=== PATIENT | male | born 1940 | race Caucasian/White ===

== ENCOUNTER 2017-10-14 10:17 | Inpatient (IN) ==
--- NOTE | 2017-10-14 10:59 | Emergency Department Note ---
Disposition Clinical Impression: Weakness, Dyspnea, Multiple falls Disposition: Admitted As Inpatient Condition: Fair Time of Disposition: 11:30 Weakness HPI - General Chief complaint: ED Weakness Stated complaint: weakness Time Seen by Provider: 10/14/17 10:19 Source: patient, EMS Mode of arrival: ambulatory Limitations: no limitations Nursing Notes Reviewed: Yes Vital Signs Reviewed: Yes - History of Present Illness HPI Narrative: 77-year-old male presents emergency Department with concerns of bilateral lower extremity weakness, increasing dyspnea with exertion. Patient states he is unable to function at home, he falls almost daily. Patient states his legs become weak with ambulation less than 10 feet and then give out causing him to fall to the ground. Patient also states he becomes significantly short of breath. This has been a progressive decline over the past few months. Patient states he is unable ambulate more than 10 feet without becoming short of breath. Patient denies associated chest pain, palpitations, syncope. States he fell prior to arrival to the emergency department. He notes he did not hit his head today. He has no chest pain emergency department. Pain Scale: 0 - Related Data Home Medications Medication Instructions Recorded Confirmed Insulin Glargine,Hum.rec.anlog 13 unit SQ 10/14/17 10/14/17 [Lantus Solostar] Levothyroxine Sodium [Levo-T] 25 mcg PO QAM 10/14/17 10/14/17 Levothyroxine Sodium [Levo-T] 200 mcg PO QAM 10/14/17 10/14/17 Losartan Potassium [Cozaar] 50 mg PO DAILY 10/14/17 10/14/17 Sertraline [Zoloft] 100 mg PO DAILY 10/14/17 10/14/17 Simvastatin [Zocor] 40 mg PO HS 10/14/17 10/14/17 raNITIdine HCl [Zantac] 150 mg PO BID 10/14/17 10/14/17 Allergies Allergy/AdvReac Type Severity Reaction Status Date / Time acetaminophen [From Vicodin] AdvReac See Verified 10/14/17 10:24 Comments hydrocodone [From Vicodin] AdvReac See Verified 10/14/17 10:24 Comments All systems ED: reviewed and negative except as stated. Review of Systems: As Per HPI Past Medical History - Past Medical History Attestation: Yes The following information was validated with the patient. Source: patient Medical history: Reports: diabetes, hyperlipidemia, hypertension, thyroid disease Psychiatric history: Reports: depression - Social History Smoking Status: Current every day smoker Smokeless Tobacco Status: No Alcohol use: Reports: none Drug use: Reports: none Physical Exam General: Alert and in no acute distress Skin: Warm, dry, intact Head: Normocephalic and atraumatic Neck: Supple, trachea midline and no tenderness Cardiovascular: RRR, no murmur, normal perfusion Respiratory: CTAB, no wheezing, cough, or respiratory distress Musculoskeletal: Normal strength, no tenderness, swelling or deformity. Bilateral lower extremities with 3 out of 5 strength. Pulses equal the bilateral lower extremity. GI: Soft, nontender, nondistended. Bowel sounds present Neuro: A&O to person, place, time and situation. No focal deficits noted on exam Psychiatric: cooperative and appropriate mood and affect. - General Limitations: no limitations General appearance: alert, in no apparent distress Course Vital Signs Temperature 98.3 F 10/14/17 10:18 Pulse Rate 74 10/14/17 10:18 Respiratory Rate 18 10/14/17 10:18 Blood Pressure 131/99 10/14/17 10:18 O2 Sat by Pulse Oximetry 96 10/14/17 10:18 Temperature 97.5 F L 10/14/17 12:57 Pulse Rate 67 10/14/17 12:57 Respiratory Rate 16 10/14/17 12:57 Blood Pressure 166/82 10/14/17 12:57 O2 Sat by Pulse Oximetry 96 10/14/17 12:57 Oxygen Delivery Oxygen Delivery Room Air Weakness - MDM Narrative Medical decision making narrative: CT of the head was negative for acute fracture or intracranial hemorrhage. Laboratory evaluation was largely within normal limits. Patient has equal strength of bilateral lower extremities but it is 3 out of 5. Patient does not have urinary incontinence. Patient will likely require an MRI for further evaluation of his bilateral lower extremity weakness however his symptoms do not likely represent cauda equina and have been progressive over the past few months. Patient is unable to ambulate without falling and is therefore risk to go home by himself. states she is unable to care for him at home. Patient will be admitted to the hospitalist for further care and evaluation and possible placement into rehabilitation facility. - Medical Records Medical records reviewed: Yes I reviewed the patient's medical records. - Lab Data Lab results reviewed: Yes I reviewed the patient's lab results. Result diagrams: 10/14/17 11:03 10/14/17 11:03 Lab Results 10/14/17 10/14/17 10/14/17 Range/Units 11:03 11:03 11:15 WBC 6.1 (4.3-11.1) K/mcL RBC 4.71 (4.19-5.50) M/mcL Hgb 15.5 (12.9-16.9) g/dL Hct 46.0 (37.5-50.1) % MCV 97.7 (83.0-100.0) fL MCH 32.9 (28.0-33.3) pg MCHC 33.7 (31.6-35.5) g/dL RDW 14.0 (11.5-14.5) % Plt Count 107 L (140-400) K/mcL MPV 10.2 (9.4-12.4) fL Immature Gran % 0.3 (0-4) % Seg Neutrophils % 80.1 % Lymphocytes % 11.1 % Monocytes % 6.9 % Eosinophils % 1.3 % Basophils % 0.3 % Neutrophils # 4.9 (1.6-8.9) K/mcL Lymphocytes # 0.7 (0.6-4.6) K/mcL Monocytes # 0.4 (0.0-1.3) K/mcL Eosinophils # 0.1 (0.0-0.6) K/mcL Basophils # 0.0 (0.0-0.2) K/mcL Sodium 140 (136-145) mEq/L Potassium 4.0 (3.5-5.1) mEq/L Chloride 105 (98-107) mEq/L Carbon Dioxide 28 (23-29) mEq/L BUN 20 (8-23) mg/dL Creatinine 1.22 (0.70-1.30) mg/dL Est GFR ( Amer) > 60 (> 60) Est GFR (Non-Af Amer) 58 L (> 60) BUN/Creatinine Ratio 16 (6-26) Glucose 132 H (70-105) mg/dL Calculated Osmolality 294 (280-300) Calcium 9.0 (8.6-10.3) mg/dL Total Bilirubin 2.2 H (0.3-1.0) mg/dL AST 106 H (13-39) Units/L ALT 16 (7-52) Units/L Alkaline Phosphatase 81 (34-104) Units/L Troponin I 0.03 (< 0.04) ng/mL Serum Total Protein 6.6 (6.4-8.9) g/dL Albumin 3.8 (3.5-5.7) g/dL Globulin 2.8 (2.4-3.5) g/dL Albumin/Globulin Ratio 1.4 (1.1-2.2) TSH 0.878 (0.340-5.600) mcIU/mL Urine Color Dark Yellow (Yellow) Urine Clarity Cloudy A (Clear) Urine pH 5.5 (5.0-8.0) pH Units Ur Specific [place] 1.025 (1.010-1.025) Urine Protein Trace (Neg-Trace) mg/dL Urine Glucose (UA) Normal (Normal) mg/dL Urine Ketones Trace H (Negative) mg/dL Urine Blood Negative (Negative) Urine Nitrite Negative (Negative) Urine Bilirubin Small H (Negative) Urine Urobilinogen Normal (Normal) mg/dL Ur Leukocyte Esterase Moderate H (Negative) Urine Microscopic RBC 5-15 H (0-3) per hpf Urine Microscopic WBC 15-30 H (0-3) per hpf Ur Squamous Epith Cells Many H (None-Few) per lpf Urine Bacteria None Seen (None-Few) per hpf Hyaline Casts Few (None-Few) per lpf Ur Culture Indicated? NO. A (NO) - Radiology Data Radiology results reviewed: Yes I reviewed the patient's radiology results. - EKG Data EKG attestation: Yes I reviewed and interpreted this EKG. EKG results narrative: Normal sinus rhythm with rate of 71 without evidence of STEMI.
[2017-10-14 11:23] LABS: Basophils % 0.3 %; Eosinophils # 0.1 K/mcL (0.0-0.6); Eosinophils % 1.3 %; Hemoglobin 15.5 g/dL (12.9-16.9); Immature Granulocytes % 0.3 % (0-4); Lymphocytes # 0.7 K/mcL (0.6-4.6); Lymphocytes % 11.1 %; Mean Corpuscular HGB Conc 33.7 g/dL (31.6-35.5); Mean Corpuscular Hemoglobin 32.9 pg (28.0-33.3); Mean Corpuscular Volume 97.7 fL (83.0-100.0); Mean Platelet Volume 10.2 fL (9.4-12.4); Monocytes # 0.4 K/mcL (0.0-1.3); Monocytes % 6.9 %; Neutrophils # 4.9 K/mcL (1.6-8.9); Platelet Count 107 K/mcL (140-400); Red Blood Count 4.71 M/mcL (4.19-5.50); Segmented Neutrophils % 80.1 %
[2017-10-14 11:30] LABS: Bilirubin,Urine Small (Negative); Blood,Urine Negative (Negative); Clarity,Urine Cloudy (Clear); Color,Urine Dark Yellow (Yellow); Glucose,Urine (UA) Normal (Normal); Ketones,Urine Trace mg/dL (Negative); Leukocyte Esterase,Urine Moderate (Negative); Nitrite,Urine Negative (Negative); PH,Urine 5.5 pH Units (5.0-8.0); Protein,Urine Trace mg/dL (Neg-Trace); Specific Gravity,Urine 1.025 (1.010-1.025); Urobilinogen,Urine Normal (Normal)
[2017-10-14 11:32] LABS: Bacteria,Urine None Seen per hpf (None-Few); Hyaline Casts,Urine Few per lpf (None-Few); Squamous Epithelial Cell,Urine Many per lpf (None-Few); WBC,Urine 15-30 per hpf (0-3)
[2017-10-14 11:45] LABS: Alanine Aminotransferase 16 Units/L (7-52); Albumin 3.8 g/dL (3.5-5.7); Albumin/Globulin Ratio 1.4 (1.1-2.2); Alkaline Phosphatase 81 Units/L (34-104); Aspartate Amino Transferase 106 Units/L (13-39); BUN/Creatinine Ratio 16 (6-26); Bilirubin,Total 2.2 mg/dL (0.3-1.0); Blood Urea Nitrogen 20 mg/dL (8-23); Carbon Dioxide 28 mEq/L (23-29); Chloride 105 mEq/L (98-107); Globulin 2.8 g/dL (2.4-3.5); Glucose 132 mg/dL (70-105); Osmolality,Calculated 294 (280-300); Sodium 140 mEq/L (136-145); Total Protein 6.6 g/dL (6.4-8.9); Troponin I 0.03 ng/mL (< 0.04); eGFR For African Americans > 60 (> 60); eGFR For Non-African Americans 58 (> 60)
[2017-10-14 11:58] LABS: Thyroid Stimulating Hormone 0.878 mcIU/mL (0.340-5.600)
[2017-10-14] MEDS ORDERED: Naloxone 0.4 MG/ML INJ IVP PRN (13:35)
[2017-10-14] MEDS ORDERED: Acetaminophen 325 MG TABLET PO PRN (13:35)
[2017-10-14] MEDS ORDERED: Loperamide 1 MG/5 ML UDC PO PRN (14:03)
[2017-10-14] MEDS ORDERED: Dextrose Gel 15 GM/37.5 ML TUBE PO PRN ×2 (14:04)
[2017-10-14] MEDS ORDERED: *HR* Dextrose 50 % in Water (Syg) 50 ML SYRINGE IVP PRN (14:04)
[2017-10-14] MEDS ORDERED: D5% in Water 1,000 ML IVC PRN (14:04)
--- NOTE | 2017-10-14 15:49 | Internal Med History&Physical ---
<RebeccaPonce Burciaga - Last Filed: 10/14/17 16:30> Date of Encounter: 10/14/17 Time of Encounter: 13:00 Internal Medicine - H&P: HPI Chief complaint: Weakness of bilateral LEs/SOB Admitted From: Emergency Dept Plans for Post Hospital Care: Home History of present illness: Mr. Liang is a 77 year old male w/PMH of diabetes controlled w/insulin, HLD, HTN, thyroid disease, and GERD presents from the ED w/CC of bilateral leg weakness that has been present for the past several years but has worsened over the past several weeks. Pt. reports new onset of falls over the past several weeks from weakness with last one today. Denies hitting head or syncope. Also reports SOB/dyspnea w/exertion over the past 2 weeks which has worsened. States he takes 4-5 steps and begins panting. Pt. reports diarrhea for past several days but denies recent illness, fever, chills, nausea, vomiting, changes in vision, unusual bleeding, headache, numbness, tingling, abdominal pain, constipation, dizziness, lightheadedness, pre-syncope, or syncope. Past Med Surg Social Fam HX - Past Medical History Source: patient, old records reviewed, obtained from family Medical history: diabetes, GERD, hyperlipidemia, hypertension, thyroid disease Psychiatric history: depression - Past Surgical History Additional surgical history: left knee replacement, arthroscopy right knee, disc surgery in back several years ago x 2 - Social History Smoking Status: Current some day smoker Packs per day: Pipes - Reports quitting cigarettes >40 years ago Smokeless Tobacco Status: No Alcohol use: none Drug use: none Current living situation: Home, With Family Activity Level: Uses cane/walker Recent Out of Country Travel Within the Last 8 Weeks: No Exposure or Possible Exposure to Illness During Travel: No - Family History Father Race: Family Member Ethnicity: Non- Living Status: Age at : 90 Cause of : Alzheimer's disease Hx Family Neurologic Disorders: Yes (Alzheimer's disease) Mother Race: Family Member Ethnicity: Non- Living Status: Age at : 62 Cause of : Uterine cancer Brother Race: Family Member Ethnicity: Non- Living Status: Still Living Hx Family Endocrine Disorder: Yes (DM) Internal Medicine - H&P: Meds Insulin Glargine,Hum.rec.anlog [Lantus Solostar] 13 unit SQ HS 10/14/17 [History ] Levothyroxine Sodium [Levo-T] 25 mcg PO QAM 10/14/17 [History] Levothyroxine Sodium [Levo-T] 200 mcg PO QAM 10/14/17 [History] Losartan Potassium [Cozaar] 50 mg PO DAILY 10/14/17 [History] Sertraline [Zoloft] 100 mg PO DAILY 10/14/17 [History] Simvastatin [Zocor] 40 mg PO HS 10/14/17 [History] raNITIdine HCl [Zantac] 150 mg PO BID 10/14/17 [History] 3 Allergy/AdvReac Type Severity Reaction Status Date / Time acetaminophen [From Vicodin] AdvReac See Verified 10/14/17 10:24 Comments hydrocodone [From Vicodin] AdvReac See Verified 10/14/17 10:24 Comments All Systems PM: A 10-system review of systems was performed and is negative for pertinent findings except as documented above in the HPI. - Constitutional Constitutional: as per HPI, falls, weakness (Bilateral LEs), no chills, no fever (s), no night sweats - EENT Eyes: no change in vision, no discharge, no pain, no photophobia Ears: no ear discharge, no ear pain, no tinnitus Nose, mouth and throat: no dysphagia, no nasal discharge, no neck pain, no sore throat - Breasts Breasts: as per HPI - Cardiovascular Cardiovascular ROS IM: as per HPI, dyspnea on exertion, no chest pain, no diaphoresis, no lightheadedness, no palpitations, no syncope - Respiratory Respiratory: as per HPI, dyspnea on exertion, no cough, no dyspnea, no wheezing , no excessive phlegm production - Gastrointestinal Gastrointestinal: as per HPI, diarrhea, no abdominal pain, no hematemesis, no hematochezia, no melena, no nausea, no vomiting - Genitourinary Genitourinary ROS male: as per HPI - Musculoskeletal Musculoskeletal ROS IM: as per HPI, back pain, no numbness, no tingling - Integumentary Integumentary IM: as per HPI, no rash, no unusual bruising - Neurological Neurological ROS: as per HPI, frequent falls, weakness (Bilateral LEs), no confusion, no convulsions, no focal weakness, no numbness, no tingling, no tremor(s) - Psychiatric Psychiatric: as per HPI, depression - Endocrine Endocrine IM: as per HPI - Hematologic/Lymphatic Hematologic/Lymphatic: as per HPI, no easy bruising - Allergic/Immunologic Allergic/Immunologic: as per HPI - Constitutional Vitals: Temp Pulse Resp BP Pulse Ox 97.5 F L 67 16 166/82 96 10/14/17 12:57 10/14/17 12:57 10/14/17 12:57 10/14/17 12:57 10/14/17 12:57 General appearance: Present: cooperative, A&O X 3, pleasant, no acute distress, obese, answers questions appropriately - Head Head exam: Present: atraumatic, normocephalic - Eye Eye exam: Present: PERRL, conjuntiva pink, sclera anicteric Pupils: Present: PERRL - ENT ENT exam: Present: normal exam - Neck Neck exam general surgery: Present: supple, trachea midline. Absent: lymphadenopathy - Respiratory Respiratory exam: Present: CTAB. Absent: accessory muscle use, rales, rhonchi, wheezes - Cardiovascular Cardiovascular exam: Present: RRR, +S1, +S2. Absent: diastolic murmur, gallop, rubs, systolic murmur - GI/Abdominal GI/Abdominal exam: Present: normal bowel sounds, soft, no peritoneal signs. Absent: distended, tenderness - Rectal Rectal exam: Present: deferred - Additional comments: exam deferred. - Extremities Exam Extremities exam: Present: warm, radial pulses palpable and symmetrical. Absent : calf tenderness, cyanotic, pedal edema - Back Exam Back exam: Present: normal inspection - Neurological Exam Neurological exam: Present: CN II-XII intact, oriented X3, no focal deficits. Absent: pronater drift, facial droop, speech deficit - Psychiatric Psychiatric exam: Present: normal affect, normal mood - Skin Skin exam: Present: dry, intact Internal Med - H&P Results - Labs CBC & Chem 7: 10/14/17 11:03 10/14/17 11:03 - Diagnostic Studies Chest x-ray Additional comments: Impressions Chest X-Ray 10/14/17 10:54 IMPRESSION: No acute cardiopulmonary disease. Cardiomegaly without evidence of failure. D/ / Kiet Aguirre MD / Kiet Aguirre MD Interpreting Provider: Kiet Aguirre MD CT scan - head Additional comments: Impressions Head CT 10/14/17 10:55 IMPRESSION: Stable appearance of the brain with no acute intracranial abnormality. There is age-appropriate cerebral atrophy with evidence of chronic periventricular small vessel ischemic disease. D/ / Albino Funes MD / Albino Funes MD Interpreting Provider: Albino Funes MD Other Images Additional comments: Impressions Lumbar Spine MRI 10/14/17 12:09 IMPRESSION: L3 vertebroplasty. Old L4 fracture with loss of 25% of vertebral body height. Severe central canal stenosis at L3-L4 of multifactorial etiology. Large far left lateral disc protrusion resulting in effacement of the traversing left L1 nerve root. Mild central canal stenosis at L2-L3. D/ / 10/14/2017 14:59:35 Claudy Montanez MD / hernando Interpreting Provider: Claudy Montanez MD - Assessment and plan (1) Weakness of both lower extremities Current Visit: Yes Status: Acute Assessment and plan: Acute on chronic weakness of bilateral LEs that has been present over past several years and has worsened over past several weeks resulting in multiple falls. Pt. denies hx of CVA/TIA or familial hx. CT of the head shows stable appearance of the brain with no acute intracranial abnormality. Age- appropriate cerebral atrophy with evidence of chronic periventricular small vessel ischemic disease. MRI of the lumbar spine shows L3 vertebroplasty. Old L4 fracture with loss of 25% vertebral body height. Severe central canal stenosis at L3-L4 of multifactorial etiology. Large far left lateral disc protrusion resulting in effacement of the traversing left L1 nerve root. Mild central canal stenosis at L2-L3. PT/OT consults ordered to assess for home/ rehabilitation needs. Falls/safety precautions, up with assist, bed rest w/ bedside commode w/assist only. Pt. is moderate risk for further morbidity d/t current increasing weakness and SOB, increased risk for falls/injury, hx, and risk factors. Observation. (2) Dyspnea Current Visit: Yes Status: Acute Assessment and plan: Acute dyspnea w/exertion over the past several weeks which has worsened. Pt. denies hx of COPD or CHF. BNP 19. CXR shows heart size is enlarged, stable. Pulmonary vascularity is normal. No airspace consolidation. No pleural effusion or pneumothorax. Concern for possible PE so VQ scan ordered d/t pts. GFR of 58 currently. Awaiting results. Supplemental O2 w/titration and SpO2 monitoring. Falls/safety precautions, up with assist, bed rest w/bedside commode w/assist only. Consider Echocardiogram to assess pts. LVEF. Qualifiers: Dyspnea type: dyspnea on exertion Qualified Code(s): R06.09 - Other forms of dyspnea (3) Multiple falls Current Visit: Yes Status: Acute Assessment and plan: Acute falls over past several weeks d/t weakness in bilateral LEs. Falls/safety precautions, up with assist, bed rest w/bedside commode w/assist only. (4) Diabetes Current Visit: Yes Status: Chronic Assessment and plan: Hx of chronic diabetes controlled with insulin. Continue patient's Humalog 13 units SQ at bedtime. Add low-dose correction insulin sliding scale with hypoglycemic protocol. BG checks before meals at bedtime. A1c in a.m. labs. Qualifiers: Diabetes mellitus type: type 2 Diabetes mellitus custodial insulin use: unspecified custodial insulin use status Diabetes mellitus complication status : with unspecified complications Qualified Code(s): E11.8 - Type 2 diabetes mellitus with unspecified complications (5) HTN (hypertension) Current Visit: Yes Status: Chronic Assessment and plan: Hx of chronic HTN. Monitor pt. and VS. Orthostatic BPs and VS ordered. Continue pts. Cozaar. Qualifiers: Hypertension type: essential hypertension Qualified Code(s): I10 - Essential (primary) hypertension (6) HLD (hyperlipidemia) Current Visit: Yes Status: Chronic Assessment and plan: Hx of chronic HLD. Lipid panel in a.m. labs. Continue pts. Zocor. Qualifiers: Hyperlipidemia type: pure hypercholesterolemia Qualified Code(s): E78.00 - Pure hypercholesterolemia, unspecified; E78.0 - Pure hypercholesterolemia (7) Thyroid disease Current Visit: Yes Status: Chronic Assessment and plan: Hx of chronic thyroid disease. TSH 0.878 on admission. Continue pts. Synthroid. (8) GERD (gastroesophageal reflux disease) Current Visit: Yes Status: Chronic Assessment and plan: Hx of chronic GERD. IVP Zofran 4 mg Q6HR PRN for N/V. IVP Protonix 40 mg BID. Qualifiers: Esophagitis presence: esophagitis presence not specified Qualified Code(s) : K21.9 - Gastro-esophageal reflux disease without esophagitis (9) DVT prophylaxis Current Visit: Yes Status: Acute Assessment and plan: Heparin 5,000 units SQ Q8HR for DVT prophylaxis. Monitor pt. for signs of bleeding. (10) Depression Current Visit: Yes Status: Chronic Assessment and plan: Hx of chronic depression. Continue pts. Zoloft. Qualifiers: Depression Type: unspecified Qualified Code(s): F32.9 - Major depressive disorder, single episode, unspecified - Time Spent With Patient Total time spent is greater than 50% in coordination of care (as documented) at patient's floor/unit and/or counseling patient: Greater than 35 minutes <Allan Ibarra - Last Filed: 10/15/17 07:57> Date of Encounter: 10/15/17 Internal Medicine - H&P: HPI History of present illness: Mr. Liang is a 77 year old male Past Med Surg Social Fam HX - Family History Father Race: Family Member Ethnicity: Non- Living Status: Age at : 90 Cause of : Alzheimer's disease Hx Family Neurologic Disorders: Yes (Alzheimer's disease) Mother Race: Family Member Ethnicity: Non- Living Status: Age at : 62 Cause of : Uterine cancer Brother Race: Family Member Ethnicity: Non- Living Status: Still Living Hx Family Endocrine Disorder: Yes (DM) Daughter Name: Candelaria Maciel Age: 46 Family Member Ethnicity: Non- Living Status: Still Living Hx Family Cardiac Disorders: No Hx Family Respiratory Disorders: No Hx Family Cancer: No Hx Family GI Disorders: No Hx Family Genitourinary Disorders: No Hx Family Endocrine Disorder: Yes (thyroid) Hx Family Musculoskeletal Disorders: No Hx Family Neuromuscular Disorders: No Hx Family Neurologic Disorders: No Hx Family HEENT Disorders: No Hx Family Autoimmune Disorders: No Hx Family Reproductive Disorders: No Hx Family Psychosocial Disorders: No Hx Family Medical Disorders: No All Systems PM: A 10-system review of systems was performed and is negative for pertinent findings except as documented above in the HPI. - Constitutional Vitals: Temp Pulse Resp BP Pulse Ox 98.0 F 62 16 122/60 96 10/15/17 07:14 10/15/17 07:14 10/15/17 07:14 10/15/17 07:14 10/15/17 07:14 Internal Med - H&P Results - Labs CBC & Chem 7: 10/15/17 03:45 10/15/17 03:45 Labs: Short CBC 10/15/17 Range/Units 03:45 WBC 5.3 (4.3-11.1) K/mcL Hgb 14.4 (12.9-16.9) g/dL Hct 42.2 (37.5-50.1) % Plt Count 98 L (140-400) K/mcL Neutrophils # 4.2 (1.6-8.9) K/mcL BMP 10/15/17 03:45 Sodium 139 Potassium 4.0 Chloride 106 Carbon Dioxide 26 BUN 23 Creatinine 1.18 Glucose 126 H Calcium 8.5 L Liver Function 10/15/17 Range/Units 03:45 Total Bilirubin 1.7 H (0.3-1.0) mg/dL AST 95 H (13-39) Units/L ALT 15 (7-52) Units/L Alkaline Phosphatase 73 (34-104) Units/L Albumin 3.3 L (3.5-5.7) g/dL - Impressions ITS Impressions Pulmonary Perfusion Imaging 10/14/17 14:33 IMPRESSION: Low probability for pulmonary embolus. D/ / Kyler Martinez MD / Kyler Martinez MD Interpreting Provider: Kyler Martinez MD - Attending Attestation Discussed with MALATHI and agree with assessment as above. Patient is a 77-year-old male with history of multiple falls who presented to the ER due to lower extremity weakness and shortness of breath. On exam patient did not appear short of breath and was on room air. MRI of back pending to evaluate for lower extremity weakness. Will also order VQ scan to rule out PE due to patients report of sudden onset of shortness of breath. 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 insulin use status Diabetes mellitus complication status : with unspecified complications Qualified Code(s): E11.8 - Type 2 diabetes mellitus with unspecified complications (5) HTN (hypertension) Current Visit: Yes Status: Chronic Qualifiers: Hypertension type: essential hypertension Qualified Code(s): I10 - Essential (primary) hypertension (6) HLD (hyperlipidemia) Current Visit: Yes Status: Chronic Qualifiers: Hyperlipidemia type: pure hypercholesterolemia Qualified Code(s): E78.00 - Pure hypercholesterolemia, unspecified; E78.0 - Pure hypercholesterolemia (7) Thyroid disease Current Visit: Yes Status: Chronic (8) GERD (gastroesophageal reflux disease) Current Visit: Yes Status: Chronic Qualifiers: Esophagitis presence: esophagitis presence not specified Qualified Code(s) : K21.9 - Gastro-esophageal reflux disease without esophagitis (9) DVT prophylaxis Current Visit: Yes Status: Acute (10) Depression Current Visit: Yes Status: Chronic Qualifiers: Depression Type: unspecified Qualified Code(s): F32.9 - Major depressive disorder, single episode, unspecified - Time Spent With Patient Total time spent is greater than 50% in coordination of care (as documented) at patient's floor/unit and/or counseling patient:
[2017-10-14] MEDS ORDERED: Ondansetron 4 MG/2 ML VIAL IVP PRN (16:00)
[2017-10-14] MEDS: Levothyroxine 25 MCG TABLET PO SCH (17:08)
[2017-10-14] MEDS: Pantoprazole 40 MG VIAL IVP SCH (17:10)
[2017-10-14] MEDS: Insulin LISPRO 300 UNITS/3 ML VIAL SQ SCH ×2 (17:20→21:08)
[2017-10-14] MEDS: Insulin DETEMIR 100 UNIT/ML X5UNITS SQ SCH (20:56)
[2017-10-14] MEDS: *HR* Heparin 5,000 UNIT/ML VIAL SQ SCH (21:08)
[2017-10-15] MEDS: Melatonin 3 MG TABLET PO PRN ×2 (03:35→20:25)
[2017-10-15 04:44] LABS: Immature Granulocytes % 0.4 % (0-4); Mean Corpuscular Volume 97.7 fL (83.0-100.0)
[2017-10-15 04:46] LABS: Basophils % 0.2 %; Eosinophils # 0.1 K/mcL (0.0-0.6); Eosinophils % 1.1 %; Hematocrit 42.2 % (37.5-50.1); Hemoglobin 14.4 g/dL (12.9-16.9); Immature Platelets 3.2 % (1.1-6.1); Lymphocytes # 0.7 K/mcL (0.6-4.6); Lymphocytes % 12.5 %; Mean Corpuscular HGB Conc 34.1 g/dL (31.6-35.5); Mean Corpuscular Hemoglobin 33.3 pg (28.0-33.3); Mean Platelet Volume 10.6 fL (9.4-12.4); Monocytes # 0.4 K/mcL (0.0-1.3); Monocytes % 7.5 %; Neutrophils # 4.2 K/mcL (1.6-8.9); Red Blood Count 4.32 M/mcL (4.19-5.50); Segmented Neutrophils % 78.3 %
[2017-10-15 04:51] LABS: Alanine Aminotransferase 15 Units/L (7-52); Albumin 3.3 g/dL (3.5-5.7); Albumin/Globulin Ratio 1.3 (1.1-2.2); Alkaline Phosphatase 73 Units/L (34-104); Aspartate Amino Transferase 95 Units/L (13-39); BUN/Creatinine Ratio 19 (6-26); Bilirubin,Total 1.7 mg/dL (0.3-1.0); Blood Urea Nitrogen 23 mg/dL (8-23); Calcium 8.5 mg/dL (8.6-10.3); Carbon Dioxide 26 mEq/L (23-29); Chloride 106 mEq/L (98-107); Chol/HDL Ratio 3.3 (0-4.9); Cholesterol 109 mg/dL (< 200); Globulin 2.5 g/dL (2.4-3.5); Glucose 126 mg/dL (70-105); HDL Cholesterol 33 mg/dL (40-59); LDL Cholesterol,Calculated 59 mg/dL (0-99); Magnesium 1.7 mg/dL (1.6-2.6); Osmolality,Calculated 293 (280-300); Sodium 139 mEq/L (136-145); Total Protein 5.8 g/dL (6.4-8.9); Triglycerides 83 mg/dL (< 150); eGFR For African Americans > 60 (> 60); eGFR For Non-African Americans > 60 (> 60)
[2017-10-15 05:04] LABS: Platelet Count 98 K/mcL (140-400)
[2017-10-15] MEDS: Levothyroxine 25 MCG TABLET PO SCH (06:04)
[2017-10-15] MEDS: Pantoprazole 40 MG VIAL IVP SCH ×2 (06:04→17:10)
[2017-10-15] MEDS: *HR* Heparin 5,000 UNIT/ML VIAL SQ SCH ×3 (06:05→20:24)
[2017-10-15] MEDS ORDERED: Levothyroxine 25 MCG TABLET PO SCH (06:30)
--- NOTE | 2017-10-15 07:18 | Electrocardiograph Report ---
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
[2017-10-15] MEDS: Insulin LISPRO 300 UNITS/3 ML VIAL SQ SCH ×4 (08:07→19:58)
--- NOTE | 2017-10-15 09:32 | Internal Med Progress Note ---
Date of Encounter: 10/15/17 Time of Encounter: 09:30 - Assessment and plan (1) Dyspnea Current Visit: Yes Status: Acute Assessment and plan: Patient has been experiencing dyspnea for several weeks denies any history of COPD chest x-ray shows heart size is enlarged pulmonary vascularity is normal no pleural effusion or pneumothorax VQ scan is low probability for PE-SPO2 is stable on room air-supplemental oxygen as needed falls precaution patient will be evaluated for PTOT deconditioning weakness Qualifiers: Dyspnea type: dyspnea on exertion Qualified Code(s): R06.09 - Other forms of dyspnea (2) Multiple falls Current Visit: Yes Status: Acute Assessment and plan: Patient does have a history of past falls however the past 3 days he is followed every day due to weakness and bilateral lower extremities. Most likely secondary to severe spinal canal stenosis. We will check B12 and folate Patient will follow up with Dr. Clark next in his office PTOT has been evaluated (3) Weakness of both lower extremities Current Visit: Yes Status: Acute Assessment and plan: MRI completed which did show L3 vertebroplasty. Old L4 fracture with loss of 25 % of vertebral body height. Severe central canal stenosis at L3-L4 of multifactorial etiology. Large far left lateral disc protrusion resulting in effacement of the traversing left L1 nerve root. Mild central canal stenosis at L2-L3." I did speak with Dr. 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 Diabetes mellitus complication status : with unspecified complications Qualified Code(s): E11.8 - Type 2 diabetes mellitus with unspecified complications (5) HTN (hypertension) Current Visit: Yes Status: Chronic Assessment and plan: Blood pressure is stable at this time-orthostatics stable-continued Veteran Qualifiers: Hypertension type: essential hypertension Qualified Code(s): I10 - Essential (primary) hypertension (6) HLD (hyperlipidemia) Current Visit: Yes Status: Chronic Assessment and plan: Lipid panel stable continue Zocor Qualifiers: Hyperlipidemia type: pure hypercholesterolemia Qualified Code(s): E78.00 - Pure hypercholesterolemia, unspecified; E78.0 - Pure hypercholesterolemia (7) Thyroid disease Current Visit: Yes Status: Chronic Assessment and plan: Continue Synthroid (8) GERD (gastroesophageal reflux disease) Current Visit: Yes Status: Chronic Assessment and plan: Protonix Qualifiers: Esophagitis presence: esophagitis presence not specified Qualified Code(s) : K21.9 - Gastro-esophageal reflux disease without esophagitis (9) Depression Current Visit: Yes Status: Chronic Assessment and plan: Continue Zoloft presently stable Qualifiers: Depression Type: unspecified Qualified Code(s): F32.9 - Major depressive disorder, single episode, unspecified (10) DVT prophylaxis Current Visit: Yes Status: Acute Assessment and plan: Heparin subcutaneous (11) Spinal stenosis of lumbar region Current Visit: Yes Status: Acute Assessment and plan: Lumbar MRI L3 vertebroplasty. Old L4 fracture with loss of 25% of vertebral body height. Severe central canal stenosis at L3-L4 of multifactorial etiology. Large far left lateral disc protrusion resulting in effacement of the traversing left L1 nerve root. Mild central canal stenosis at L2-L3." Qualifiers: Neurogenic claudication status: unspecified Qualified Code(s): M48.061 - Spinal stenosis, lumbar region without neurogenic claudication - Time Spent With Patient Total time spent is greater than 50% in coordination of care (as documented) at patient's floor/unit and/or counseling patient: - Subjective Interval history: Patient seen and examined at bedside. Denies any pain or discomfort. Attempted to have patient stand he was unable to stand saying he legs are too weak. I did review treatment plan with the patient, he verbalizes understanding. - Constitutional Vitals: Temp Pulse Resp BP Pulse Ox 98.0 F 62 16 122/60 96 10/15/17 07:14 10/15/17 07:14 10/15/17 07:14 10/15/17 07:14 10/15/17 07:14 General appearance: Present: cooperative, A&O X 3, pleasant, no acute distress, obese, answers questions appropriately - Head Head exam: Present: atraumatic, normocephalic - Eye Eye exam: Present: PERRL, conjuntiva pink, sclera anicteric Pupils: Present: PERRL - Neck Neck exam general surgery: Present: supple, trachea midline. Absent: lymphadenopathy - Respiratory Respiratory exam: Present: CTAB. Absent: accessory muscle use, rales, rhonchi, wheezes - Cardiovascular Cardiovascular exam: Present: RRR, +S1, +S2. Absent: diastolic murmur, gallop, rubs, systolic murmur - GI/Abdominal GI/Abdominal exam: Present: normal bowel sounds, soft, no peritoneal signs. Absent: distended, tenderness - Extremities Exam Extremities exam: Present: warm, radial pulses palpable and symmetrical. Absent : calf tenderness, cyanotic, pedal edema - Neurological Exam Neurological exam: Present: CN II-XII intact, oriented X3, no focal deficits. Absent: pronater drift, facial droop, speech deficit - Skin Skin exam: Present: dry, intact Internal Medicine: Result - Labs CBC & Chem 7: 10/15/17 03:45 10/15/17 03:45 Labs: Short CBC 10/15/17 Range/Units 03:45 WBC 5.3 (4.3-11.1) K/mcL Hgb 14.4 (12.9-16.9) g/dL Hct 42.2 (37.5-50.1) % Plt Count 98 L (140-400) K/mcL Neutrophils # 4.2 (1.6-8.9) K/mcL BMP 10/15/17 03:45 Sodium 139 Potassium 4.0 Chloride 106 Carbon Dioxide 26 BUN 23 Creatinine 1.18 Glucose 126 H Calcium 8.5 L Liver Function 10/15/17 Range/Units 03:45 Total Bilirubin 1.7 H (0.3-1.0) mg/dL AST 95 H (13-39) Units/L ALT 15 (7-52) Units/L Alkaline Phosphatase 73 (34-104) Units/L Albumin 3.3 L (3.5-5.7) g/dL - Impressions Impressions Pulmonary Perfusion Imaging 10/14/17 14:33 IMPRESSION: Low probability for pulmonary embolus. D/ / Kyler Martinez MD / Kyler Martinez MD Interpreting Provider: Kyler Martinez MD Consult Discharge Plan - Plan Referrals: Silvio Disla MD [Primary Care Provider] - Shawn Clark Jr, MD [Partnered Physician] - 10/21/17 8:00 am
--- NOTE | 2017-10-15 11:52 | Neurology - Consult Note ---
<Jeffry Huang - Last Filed: 10/15/17 11:50> Date of Encounter: 10/15/17 Time of Encounter: 10:30 Assessment and Plan (1) Weakness of both lower extremities Current Visit: Yes Status: Acute MRI Lumbar spine shows: "L3 vertebroplasty. Old L4 fracture with loss of 25% of vertebral body height. Severe central canal stenosis at L3-L4 of multifactorial etiology. Large far left lateral disc protrusion resulting in effacement of the traversing left L1 nerve root. Mild central canal stenosis at L2-L3." Patient has severe spinal canal stenosis which is the likely the cause of the patient's BLE weakness. PT/OT have been consulted. Recommendations: Consult Dr. Hitchcock of Neurosurgery. can consider checking b12/folate as well, but feel patient's symptoms are most likely secodnary to severe spinal canal stenosis. (2) Spinal stenosis of lumbar region Current Visit: Yes Status: Acute MRI Lumbar spine shows: "L3 vertebroplasty. Old L4 fracture with loss of 25% of vertebral body height. Severe central canal stenosis at L3-L4 of multifactorial etiology. Large far left lateral disc protrusion resulting in effacement of the traversing left L1 nerve root. Mild central canal stenosis at L2-L3." Recommendations: Consult Dr. Hitchcock of Neurosurgery. Qualifiers: Neurogenic claudication status: unspecified Qualified Code(s): M48.061 - Spinal stenosis, lumbar region without neurogenic claudication History of Present Illness Chief complaint: BLE Weakness HPI: Mr. Liang is a 77 year old male c PMHx of DM, GERD, hyperlipidemia, hypertension, thyroid disease, prior kyphoplasty with Dr. Hitchcock in 2010 report to the [facility] with complaints of BLE weakness. He reports multiple falls with his legs giving out from under him. He reports not being able to walk more than 10 feet before his legs get weak and give out on him. Patient reports weakness has been there for several years, but has worsened over the last few weeks. Patient denies hitting head, LOC, Dizziness or prodrome prior to falling. Past Med Surg Social Fam HX - Past Medical History Medical history: diabetes, GERD, hyperlipidemia, hypertension, thyroid disease Psychiatric history: depression - Past Surgical History Additional surgical history: left knee replacement, arthroscopy right knee, disc surgery in back several years ago x 2 - Social History Smoking Status: Current some day smoker Packs per day: Pipes - Reports quitting cigarettes >40 years ago Smokeless Tobacco Status: No Alcohol use: none Drug use: none - Family History Daughter Name: Candelaria Maciel Age: 46 Family Member Ethnicity: Non- Living Status: Still Living Hx Family Cardiac Disorders: No Hx Family Respiratory Disorders: No Hx Family Cancer: No Hx Family GI Disorders: No Hx Family Genitourinary Disorders: No Hx Family Endocrine Disorder: Yes (thyroid) Hx Family Musculoskeletal Disorders: No Hx Family Neuromuscular Disorders: No Hx Family Neurologic Disorders: No Hx Family HEENT Disorders: No Hx Family Autoimmune Disorders: No Hx Family Reproductive Disorders: No Hx Family Psychosocial Disorders: No Hx Family Medical Disorders: No Father Race: Family Member Ethnicity: Non- Living Status: Age at : 90 Cause of : Alzheimer's disease Hx Family Neurologic Disorders: Yes (Alzheimer's disease) Mother Race: Family Member Ethnicity: Non- Living Status: Age at : 62 Cause of : Uterine cancer Brother Race: Family Member Ethnicity: Non- Living Status: Still Living Hx Family Endocrine Disorder: Yes (DM) Medications and Allergies Insulin Glargine,Hum.rec.anlog [Lantus Solostar] 13 unit SQ HS 10/14/17 [History ] Levothyroxine Sodium [Levo-T] 25 mcg PO QAM 10/14/17 [History] Levothyroxine Sodium [Levo-T] 200 mcg PO QAM 10/14/17 [History] Losartan Potassium [Cozaar] 50 mg PO DAILY 10/14/17 [History] Sertraline [Zoloft] 100 mg PO DAILY 10/14/17 [History] Simvastatin [Zocor] 40 mg PO HS 10/14/17 [History] raNITIdine HCl [Zantac] 150 mg PO BID 10/14/17 [History] 3 Allergy/AdvReac Type Severity Reaction Status Date / Time acetaminophen [From Vicodin] AdvReac See Verified 10/14/17 10:24 Comments hydrocodone [From Vicodin] AdvReac See Verified 10/14/17 10:24 Comments All Systems: The remainder of the systems were reviewed and are negative except where noted in the HPI. Physical Examination - Vital Signs Vital Signs: Initial Vital Signs Temp Pulse Resp BP Pulse Ox 98.3 F 74 18 131/99 96 10/14/17 10:18 10/14/17 10:18 10/14/17 10:18 10/14/17 10:18 10/14/17 10:18 - Constitutional General appearance: comfortable - Neurologic Motor examination - right side: 4/5: hip flexors, tibialis Anterior, quadriceps , toe extension (EHL), plantarflexion, 5/5: deltoids, biceps, triceps, wrist flexion, wrist extension, form setter/driver Motor examination - left side: 4/5: hip flexors, quadriceps, tibialis Anterior, toe extension (EHL), plantarflexion, 5/5: deltoids, biceps, triceps, wrist flexion, wrist extension, form setter/driver Detailed sensory examination: intact, light touch Reflexes: Biceps: 2+ (b/l), Patella: 2+ (on the R unable to illicit on L secodnary to Knee replacement.), Achilles: 2+ (b/l no clonus, Toe upgoing b/l on babinski testing) Mental Status Examination: awake, alert, oriented to person, oriented to place, oriented to time, follows commands appropriately, answers questions appropriately Cranial nerve examination: PERRL, EOMI, visual pickering intact, sensory to face intact, no facial asymmetry is present, no dysarthria, hearing is intact symmetrically, soft palate elevates bilaterally upon phonation, flexes SCM and trapezius muscles symmetrically with full power, tongue protrudes midline, no atrophy or facial fasiculations present Results - Laboratory Findings CBC and BMP: 10/15/17 03:45 10/15/17 03:45 Abnormal lab findings: Abnormal lab results Plt Count 98 K/mcL (140-400) L 10/15/17 03:45 Glucose 126 mg/dL (70-105) H 10/15/17 03:45 POC Glucose 150 mg/dL (70-99) H 10/14/17 20:33 Calcium 8.5 mg/dL (8.6-10.3) L 10/15/17 03:45 Total Bilirubin 1.7 mg/dL (0.3-1.0) H 10/15/17 03:45 AST 95 Units/L (13-39) H 10/15/17 03:45 Serum Total Protein 5.8 g/dL (6.4-8.9) L 10/15/17 03:45 Albumin 3.3 g/dL (3.5-5.7) L 10/15/17 03:45 HDL Cholesterol 33 mg/dL (40-59) L 10/15/17 03:45 Urine Clarity Cloudy (Clear) A 10/14/17 11:15 Urine Ketones Trace mg/dL (Negative) H 10/14/17 11:15 Urine Bilirubin Small (Negative) H 10/14/17 11:15 Ur Leukocyte Esterase Moderate (Negative) H 10/14/17 11:15 Urine Microscopic RBC 5-15 per hpf (0-3) H 10/14/17 11:15 Urine Microscopic WBC 15-30 per hpf (0-3) H 10/14/17 11:15 Ur Squamous Epith Cells Many per lpf (None-Few) H 10/14/17 11:15 Ur Culture Indicated? NO. (NO) A 10/14/17 11:15 Consult Discharge Plan - Plan Referrals: Silvio Disla MD [Primary Care Provider] - Shawn Clark Jr, MD [Partnered Physician] - 10/21/17 8:00 am <Joseph Kimbrough - Last Filed: 10/15/17 15:45> Date of Encounter: 10/15/17 Time of Encounter: 15:32 Assessment and Plan (1) Weakness of both lower extremities Current Visit: Yes Status: Acute I agree with the resident's assessment as stated above. Reviewed the MRI scans independently and I agree there is significant spinal stenosis at the L3-L4 level which is likely the cause of this patient's paraparesis. I will request a spine consultation. History of Present Illness HPI: The chart was reviewed, the patient was seen and examined independently. The case was discussed with the resident on service. I agree with his assessment as stated above. Patient denies any difficulty with sphincter abnormalities denies any evidence of a spinal level. He is able to ambulate with a walker. All Systems: The remainder of the systems were reviewed and are negative Review of Systems: The balance of the systems review is negative. Physical Examination - Vital Signs Vital Signs: Initial Vital Signs Temp Pulse Resp BP Pulse Ox 98.3 F 74 18 131/99 96 10/14/17 10:18 10/14/17 10:18 10/14/17 10:18 10/14/17 10:18 10/14/17 10:18 Results - Laboratory Findings CBC and BMP: 10/15/17 03:45 10/15/17 03:45 Abnormal lab findings: Abnormal lab results Plt Count 98 K/mcL (140-400) L 10/15/17 03:45 Glucose 126 mg/dL (70-105) H 10/15/17 03:45 POC Glucose 150 mg/dL (70-99) H 10/14/17 20:33 Calcium 8.5 mg/dL (8.6-10.3) L 10/15/17 03:45 Total Bilirubin 1.7 mg/dL (0.3-1.0) H 10/15/17 03:45 AST 95 Units/L (13-39) H 10/15/17 03:45 Serum Total Protein 5.8 g/dL (6.4-8.9) L 10/15/17 03:45 Albumin 3.3 g/dL (3.5-5.7) L 10/15/17 03:45 HDL Cholesterol 33 mg/dL (40-59) L 10/15/17 03:45 Urine Clarity Cloudy (Clear) A 10/14/17 11:15 Urine Ketones Trace mg/dL (Negative) H 10/14/17 11:15 Urine Bilirubin Small (Negative) H 10/14/17 11:15 Ur Leukocyte Esterase Moderate (Negative) H 10/14/17 11:15 Urine Microscopic RBC 5-15 per hpf (0-3) H 10/14/17 11:15 Urine Microscopic WBC 15-30 per hpf (0-3) H 10/14/17 11:15 Ur Squamous Epith Cells Many per lpf (None-Few) H 10/14/17 11:15 Ur Culture Indicated? NO. (NO) A 10/14/17 11:15
[2017-10-15] MEDS: Insulin DETEMIR 100 UNIT/ML X5UNITS SQ SCH (20:24)
[2017-10-15] MEDS ORDERED: Perflutren Lipid Microsphere 1.3 ML in 0.9 % Sodium Chloride 8.7 ML IVP ONE (21:01)
[2017-10-16 04:48] LABS: Basophils % 0.2 %; Eosinophils # 0.1 K/mcL (0.0-0.6); Eosinophils % 1.4 %; Hemoglobin 14.7 g/dL (12.9-16.9); Lymphocytes # 0.6 K/mcL (0.6-4.6); Lymphocytes % 11.7 %; Mean Corpuscular HGB Conc 34.2 g/dL (31.6-35.5); Mean Corpuscular Hemoglobin 33.6 pg (28.0-33.3); Mean Corpuscular Volume 98.4 fL (83.0-100.0); Mean Platelet Volume 10.6 fL (9.4-12.4); Monocytes # 0.4 K/mcL (0.0-1.3); Monocytes % 8.3 %; Neutrophils # 3.8 K/mcL (1.6-8.9); Nucleated Red Blood Cells 0.4 /100 WBC (0); Platelet Count 101 K/mcL (140-400); Red Blood Count 4.37 M/mcL (4.19-5.50); Red Cell Distribution Width 13.9 % (11.5-14.5); Segmented Neutrophils % 77.4 %
[2017-10-16 05:06] LABS: Alanine Aminotransferase 14 Units/L (7-52); Albumin 3.3 g/dL (3.5-5.7); Albumin/Globulin Ratio 1.2 (1.1-2.2); Alkaline Phosphatase 72 Units/L (34-104); Aspartate Amino Transferase 72 Units/L (13-39); BUN/Creatinine Ratio 18 (6-26); Bilirubin,Total 1.7 mg/dL (0.3-1.0); Blood Urea Nitrogen 21 mg/dL (8-23); Calcium 8.7 mg/dL (8.6-10.3); Carbon Dioxide 29 mEq/L (23-29); Chloride 106 mEq/L (98-107); Globulin 2.7 g/dL (2.4-3.5); Glucose 111 mg/dL (70-105); Osmolality,Calculated 296 (280-300); Potassium 4.3 mEq/L (3.5-5.1); Sodium 141 mEq/L (136-145); eGFR For African Americans > 60 (> 60); eGFR For Non-African Americans 59 (> 60)
[2017-10-16 05:27] LABS: Folate 8.4 ng/mL (3.0-16.0)
[2017-10-16] MEDS: *HR* Heparin 5,000 UNIT/ML VIAL SQ SCH ×3 (05:56→20:18)
[2017-10-16] MEDS: Levothyroxine 25 MCG TABLET PO SCH (05:56)
[2017-10-16] MEDS: Pantoprazole 40 MG VIAL IVP SCH ×2 (05:56→16:56)
[2017-10-16] MEDS: Insulin LISPRO 300 UNITS/3 ML VIAL SQ SCH ×4 (08:26→20:29)
--- NOTE | 2017-10-16 09:43 | Internal Med Progress Note ---
Date of Encounter: 10/16/17 Time of Encounter: 09:43 - Assessment and plan (1) Dyspnea Current Visit: Yes Status: Acute Assessment and plan: Patient has been experiencing dyspnea for several weeks denies any history of COPD chest x-ray shows heart size is enlarged pulmonary vascularity is normal no pleural effusion or pneumothorax VQ scan is low probability for PE-SPO2 is stable on room air-supplemental oxygen as needed falls precaution patient will be evaluated for PTOT deconditioning weakness Qualifiers: Dyspnea type: dyspnea on exertion Qualified Code(s): R06.09 - Other forms of dyspnea (2) Multiple falls Current Visit: Yes Status: Acute Assessment and plan: Patient does have a history of past falls however the past 3 days he is followed every day due to weakness and bilateral lower extremities. Most likely secondary to severe spinal canal stenosis. We will check B12 and folate Patient will follow up with Dr. Clark next in his office PTOT has been evaluated- recommending inpatient rehabilitation awaiting placement per social contact worker (3) Weakness of both lower extremities Current Visit: Yes Status: Acute Assessment and plan: MRI completed which did show L3 vertebroplasty. Old L4 fracture with loss of 25 % of vertebral body height. Severe central canal stenosis at L3-L4 of multifactorial etiology. Large far left lateral disc protrusion resulting in effacement of the traversing left L1 nerve root. Mild central canal stenosis at L2-L3." I did speak with Dr. 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 insulin use status Diabetes mellitus complication status : with unspecified complications Qualified Code(s): E11.8 - Type 2 diabetes mellitus with unspecified complications (5) HTN (hypertension) Current Visit: Yes Status: Chronic Assessment and plan: Blood pressure is stable at this time-orthostatics stable-continued Cozaar Qualifiers: Hypertension type: essential hypertension Qualified Code(s): I10 - Essential (primary) hypertension (6) HLD (hyperlipidemia) Current Visit: Yes Status: Chronic Assessment and plan: Lipid panel stable continue Zocor Qualifiers: Hyperlipidemia type: pure hypercholesterolemia Qualified Code(s): E78.00 - Pure hypercholesterolemia, unspecified; E78.0 - Pure hypercholesterolemia (7) Thyroid disease Current Visit: Yes Status: Chronic Assessment and plan: Continue Synthroid (8) GERD (gastroesophageal reflux disease) Current Visit: Yes Status: Chronic Assessment and plan: Protonix Qualifiers: Esophagitis presence: esophagitis presence not specified Qualified Code(s) : K21.9 - Gastro-esophageal reflux disease without esophagitis (9) Depression Current Visit: Yes Status: Chronic Assessment and plan: Continue Zoloft presently stable Qualifiers: Depression Type: unspecified Qualified Code(s): F32.9 - Major depressive disorder, single episode, unspecified (10) DVT prophylaxis Current Visit: Yes Status: Acute Assessment and plan: Heparin subcutaneous (11) Spinal stenosis of lumbar region Current Visit: Yes Status: Acute Assessment and plan: Lumbar MRI L3 vertebroplasty. Old L4 fracture with loss of 25% of vertebral body height. Severe central canal stenosis at L3-L4 of multifactorial etiology. Large far left lateral disc protrusion resulting in effacement of the traversing left L1 nerve root. Mild central canal stenosis at L2-L3." I did speak with Dr. Clark who advised no surgical intervention at this time however he will see the patient as an outpatient next in his office Patient will undergo physical therapy occupational therapy inpatient rehabilitation Qualifiers: Neurogenic claudication status: unspecified Qualified Code(s): M48.061 - Spinal stenosis, lumbar region without neurogenic claudication - Time Spent With Patient Total time spent is greater than 50% in coordination of care (as documented) at patient's floor/unit and/or counseling patient: - Subjective Interval history: Patient seen and examined at bedside. Denies any pain or discomfort. Continues to experience weakness awaiting rehabilitation placement. - Constitutional Vitals: Temp Pulse Resp BP Pulse Ox 98.1 F 59 17 149/85 96 10/16/17 07:27 10/16/17 07:27 10/16/17 07:27 10/16/17 07:27 10/16/17 07:27 General appearance: Present: cooperative, A&O X 3, pleasant, no acute distress, obese, answers questions appropriately - Head Head exam: Present: atraumatic, normocephalic - Eye Eye exam: Present: PERRL, conjuntiva pink, sclera anicteric Pupils: Present: PERRL - Neck Neck exam general surgery: Present: supple, trachea midline. Absent: lymphadenopathy - Respiratory Respiratory exam: Present: CTAB. Absent: accessory muscle use, rales, rhonchi, wheezes - Cardiovascular Cardiovascular exam: Present: RRR, +S1, +S2. Absent: diastolic murmur, gallop, rubs, systolic murmur - GI/Abdominal GI/Abdominal exam: Present: normal bowel sounds, soft, no peritoneal signs. Absent: distended, tenderness - Extremities Exam Extremities exam: Present: warm, radial pulses palpable and symmetrical. Absent : calf tenderness, cyanotic, pedal edema - Neurological Exam Neurological exam: Present: CN II-XII intact, oriented X3, no focal deficits. Absent: pronater drift, facial droop, speech deficit - Skin Skin exam: Present: dry, intact Internal Medicine: Result - Labs CBC & Chem 7: 10/16/17 03:02 10/16/17 03:02 Labs: Short CBC 10/16/17 Range/Units 03:02 WBC 5.0 (4.3-11.1) K/mcL Hgb 14.7 (12.9-16.9) g/dL Hct 43.0 (37.5-50.1) % Plt Count 101 L (140-400) K/mcL Neutrophils # 3.8 (1.6-8.9) K/mcL BMP 10/16/17 03:02 Sodium 141 Potassium 4.3 Chloride 106 Carbon Dioxide 29 BUN 21 Creatinine 1.19 Glucose 111 H Calcium 8.7 Liver Function 10/16/17 Range/Units 03:02 Total Bilirubin 1.7 H (0.3-1.0) mg/dL AST 72 H (13-39) Units/L ALT 14 (7-52) Units/L Alkaline Phosphatase 72 (34-104) Units/L Albumin 3.3 L (3.5-5.7) g/dL Consult Discharge Plan - Plan Referrals: Naif,Silvio Patterson MD [Primary Care Provider] - Shawn Clark Jr, MD [Partnered Physician] - 10/21/17 8:00 am
[2017-10-16] MEDS: Melatonin 3 MG TABLET PO PRN (20:25)
[2017-10-16] MEDS: Insulin DETEMIR 100 UNIT/ML X5UNITS SQ SCH (20:25)
[2017-10-17 05:28] LABS: Basophils % 0.4 %; Eosinophils # 0.1 K/mcL (0.0-0.6); Hematocrit 41.8 % (37.5-50.1); Hemoglobin 14.2 g/dL (12.9-16.9); Immature Granulocytes % 0.4 % (0-4); Immature Platelets 3.4 % (1.1-6.1); Lymphocytes # 0.6 K/mcL (0.6-4.6); Lymphocytes % 13.7 %; Mean Corpuscular Hemoglobin 33.5 pg (28.0-33.3); Mean Corpuscular Volume 98.6 fL (83.0-100.0); Mean Platelet Volume 10.6 fL (9.4-12.4); Monocytes # 0.4 K/mcL (0.0-1.3); Monocytes % 8.7 %; Red Blood Count 4.24 M/mcL (4.19-5.50); Segmented Neutrophils % 74.8 %
[2017-10-17 05:29] LABS: Neutrophils # 3.4 K/mcL (1.6-8.9); Platelet Count 93 K/mcL (140-400)
[2017-10-17 05:45] LABS: Alanine Aminotransferase 13 Units/L (7-52); Albumin 3.1 g/dL (3.5-5.7); Albumin/Globulin Ratio 1.2 (1.1-2.2); Alkaline Phosphatase 67 Units/L (34-104); Aspartate Amino Transferase 49 Units/L (13-39); BUN/Creatinine Ratio 19 (6-26); Bilirubin,Total 1.6 mg/dL (0.3-1.0); Blood Urea Nitrogen 20 mg/dL (8-23); Calcium 8.4 mg/dL (8.6-10.3); Carbon Dioxide 27 mEq/L (23-29); Chloride 104 mEq/L (98-107); Globulin 2.5 g/dL (2.4-3.5); Glucose 126 mg/dL (70-105); Osmolality,Calculated 290 (280-300); Potassium 4.1 mEq/L (3.5-5.1); Sodium 138 mEq/L (136-145); Total Protein 5.6 g/dL (6.4-8.9); eGFR For African Americans > 60 (> 60); eGFR For Non-African Americans > 60 (> 60)
[2017-10-17] MEDS: *HR* Heparin 5,000 UNIT/ML VIAL SQ SCH ×3 (05:50→20:50)
[2017-10-17] MEDS: Pantoprazole 40 MG VIAL IVP SCH ×2 (05:50→17:47)
[2017-10-17] MEDS: Levothyroxine 25 MCG TABLET PO SCH (05:51)
[2017-10-17] MEDS: Insulin LISPRO 300 UNITS/3 ML VIAL SQ SCH ×4 (08:11→20:49)
--- NOTE | 2017-10-17 10:49 | Internal Med Progress Note ---
Date of Encounter: 10/17/17 Time of Encounter: 10:46 - Assessment and plan (1) Spinal stenosis of lumbar region Current Visit: Yes Status: Acute Assessment and plan: Lumbar MRI L3 vertebroplasty. Old L4 fracture with loss of 25% of vertebral body height. Severe central canal stenosis at L3-L4 of multifactorial etiology. Large far left lateral disc protrusion resulting in effacement of the traversing left L1 nerve root. Mild central canal stenosis at L2-L3." I did speak with Dr. Clark who advised no surgical intervention at this time however he will see the patient as an outpatient next in his office Patient will undergo physical therapy occupational therapy inpatient rehabilitation Denies any pain or discomfort no numbness or tingling to lower extremities no loss of bowel or bladder Qualifiers: Neurogenic claudication status: unspecified Qualified Code(s): M48.061 - Spinal stenosis, lumbar region without neurogenic claudication (2) Dyspnea Current Visit: Yes Status: Acute Assessment and plan: Appears to be stable at this time Patient has been experiencing dyspnea for several weeks denies any history of COPD chest x-ray shows heart size is enlarged pulmonary vascularity is normal no pleural effusion or pneumothorax VQ scan is low probability for PE-SPO2 is stable on room air-supplemental oxygen as needed falls precaution Evaluating per PT OT recommending rehabilitation inpatient Qualifiers: Dyspnea type: dyspnea on exertion Qualified Code(s): R06.09 - Other forms of dyspnea (3) Multiple falls Current Visit: Yes Status: Acute Assessment and plan: Patient does have a history of past falls however the past 3 days he is followed every day due to weakness and bilateral lower extremities. Most likely secondary to severe spinal canal stenosis. We will check B12 and folate Patient will follow up with Dr. Clark next in his office PTOT has been evaluated- recommending inpatient rehabilitation awaiting placement per social work job titles No pain or discomfort at this time denies any numbness or tingling to lower extremities no loss of bowel or bladder (4) Weakness of both lower extremities Current Visit: Yes Status: Acute Assessment and plan: MRI completed which did show L3 vertebroplasty. Old L4 fracture with loss of 25 % of vertebral body height. Severe central canal stenosis at L3-L4 of multifactorial etiology. Large far left lateral disc protrusion resulting in effacement of the traversing left L1 nerve root. Mild central canal stenosis at L2-L3." I did speak with Dr. Clark -no immediate surgery required at this time he will see the patient as outpatient PT OT consulted-awaiting rehabilitation placement Neurology was consulted-feels weakness most likely related to spinal stenosis Continue with falls precautions (5) Diabetes Current Visit: Yes Status: Chronic Assessment and plan: Stable at this time Continue with basal insulin as well as sliding scale Accu- Cheks before meals and at bedtime Qualifiers: Diabetes mellitus type: type 2 Diabetes mellitus nursing home insulin use: unspecified nursing home insulin use status Diabetes mellitus complication status : with unspecified complications Qualified Code(s): E11.8 - Type 2 diabetes mellitus with unspecified complications (6) HTN (hypertension) Current Visit: Yes Status: Chronic Assessment and plan: Blood pressure is stable at this time-orthostatics stable-continued Cozaar continue to monitor. Qualifiers: Hypertension type: essential hypertension Qualified Code(s): I10 - Essential (primary) hypertension (7) HLD (hyperlipidemia) Current Visit: Yes Status: Chronic Assessment and plan: Lipid panel stable continue Zocor Qualifiers: Hyperlipidemia type: pure hypercholesterolemia Qualified Code(s): E78.00 - Pure hypercholesterolemia, unspecified; E78.0 - Pure hypercholesterolemia (8) Thyroid disease Current Visit: Yes Status: Chronic Assessment and plan: Continue Synthroid (9) GERD (gastroesophageal reflux disease) Current Visit: Yes Status: Chronic Assessment and plan: Protonix Qualifiers: Esophagitis presence: esophagitis presence not specified Qualified Code(s) : K21.9 - Gastro-esophageal reflux disease without esophagitis (10) Depression Current Visit: Yes Status: Chronic Assessment and plan: Continue Zoloft presently stable Qualifiers: Depression Type: unspecified Qualified Code(s): F32.9 - Major depressive disorder, single episode, unspecified (11) DVT prophylaxis Current Visit: Yes Status: Acute Assessment and plan: Heparin subcutaneous - Time Spent With Patient Total time spent is greater than 50% in coordination of care (as documented) at patient's floor/unit and/or counseling patient: - Subjective Interval history: Patient seen and examined at bedside. No changes since yesterday denies any pain or discomfort at this time. Awaiting placement to rehabilitation - Constitutional Vitals: Temp Pulse Resp BP Pulse Ox 98.4 F 65 17 163/90 95 10/17/17 08:28 10/17/17 08:28 10/17/17 08:28 10/17/17 08:28 10/17/17 08:28 General appearance: Present: cooperative, A&O X 3, pleasant, no acute distress, obese, answers questions appropriately - Head Head exam: Present: atraumatic, normocephalic - Eye Eye exam: Present: PERRL, conjuntiva pink, sclera anicteric Pupils: Present: PERRL - Neck Neck exam general surgery: Present: supple, trachea midline. Absent: lymphadenopathy - Respiratory Respiratory exam: Present: CTAB. Absent: accessory muscle use, rales, rhonchi, wheezes - Cardiovascular Cardiovascular exam: Present: RRR, +S1, +S2. Absent: diastolic murmur, gallop, rubs, systolic murmur - GI/Abdominal GI/Abdominal exam: Present: normal bowel sounds, soft, no peritoneal signs. Absent: distended, tenderness - Extremities Exam Extremities exam: Present: warm, radial pulses palpable and symmetrical. Absent : calf tenderness, cyanotic, pedal edema - Neurological Exam Neurological exam: Present: CN II-XII intact, oriented X3, no focal deficits. Absent: pronater drift, facial droop, speech deficit - Skin Skin exam: Present: dry, intact Internal Medicine: Result - Labs CBC & Chem 7: 10/17/17 04:55 10/17/17 04:55 Labs: Short CBC 10/17/17 Range/Units 04:55 WBC 4.6 (4.3-11.1) K/mcL Hgb 14.2 (12.9-16.9) g/dL Hct 41.8 (37.5-50.1) % Plt Count 93 L (140-400) K/mcL Neutrophils # 3.4 (1.6-8.9) K/mcL BMP 10/17/17 04:55 Sodium 138 Potassium 4.1 Chloride 104 Carbon Dioxide 27 BUN 20 Creatinine 1.05 Glucose 126 H Calcium 8.4 L Liver Function 10/17/17 Range/Units 04:55 Total Bilirubin 1.6 H (0.3-1.0) mg/dL AST 49 H (13-39) Units/L ALT 13 (7-52) Units/L Alkaline Phosphatase 67 (34-104) Units/L Albumin 3.1 L (3.5-5.7) g/dL Consult Discharge Plan - Plan Referrals: Silvio Disla MD [Primary Care Provider] - Shawn Clark Jr, MD [Partnered Physician] - 10/21/17 8:00 am
--- NOTE | 2017-10-17 17:22 | Spine Progress Note ---
Date of Encounter: 10/17/17 Time of Encounter: 17:18 - Assessment and Plan (1) Lumbar stenosis without neurogenic claudication Current Visit: Yes Status: Chronic On exam he is afebrile vital signs stable. He complains mostly of weakness in legs with frequent falls. He has some bilateral quad weakness which is 4 on a motor scale. He is otherwise neurovascularly intact with regard to his bilateral lower extremities. His hips move symmetrically. He has no clonus. MRI of the lumbar spine reveals old compression fractures at L3 and L4. There is been a previous vertebral plasty/kyphoplasty at L3. There is severe stenosis at the L3-4 level which is multifactorial in etiology. Impression: 1) lumbar stenosis severe 2) bilateral lower extremity weakness with falls Plan: Due to his concerning worsening neurologic status I find it reasonable consider surgery in the form of a laminectomy L3-4. Patient is to consider this option after consulting with his spouse. He would be placed as an add-on for October 18. He understands that he needs medical optimization and clearance prior to surgery. Subjective Principal diagnosis: Leg weakness, lumbar stenosis, falls Interval history: Mr. Hart a 77-year-old gentleman known to the practice due to previous lumbar fractures. He complains of a 6 month history of gradual onset of weakness in the lower extremities. In the past several weeks this has been manifested by falls when his legs give out. He came through the emergency department due to falls and weakness and was admitted for definitive management. He denies any fevers, chills, or bowel or bladder symptomatology. Objective Vital signs: Vital Signs Temp Pulse Resp BP Pulse Ox 10/17/17 16:08 98 F 64 17 132/66 95 10/17/17 11:50 98.1 F 60 17 161/84 95 10/17/17 08:28 98.4 F 65 17 163/90 95 10/17/17 03:25 98.4 F 67 16 135/81 98 10/16/17 23:09 97.4 F L 63 19 146/79 96 10/16/17 19:20 98.1 F 67 18 159/73 95 Intake and Output 10/17/17 10/17/17 10/17/17 07:59 15:59 23:59 Output Total 250 / 250 Balance -250 / -250 Output: Urine 250 / 250 Other: # Voids 1 Weight 136.9 kg Blood Glucose* 90 123 Patient Weight 10/17/17 23:59 Weight 136.9 kg - Labs CBC & BMP: 10/17/17 04:55 10/17/17 04:55 Labs: Abnormal lab results MCH 33.5 pg (28.0-33.3) H 10/17/17 04:55 Plt Count 93 K/mcL (140-400) L 10/17/17 04:55 Nucleated RBCs/100 WBC 0.4 /100 WBC (0) H 10/16/17 03:02 Glucose 126 mg/dL (70-105) H 10/17/17 04:55 Calcium 8.4 mg/dL (8.6-10.3) L 10/17/17 04:55 Total Bilirubin 1.6 mg/dL (0.3-1.0) H 10/17/17 04:55 AST 49 Units/L (13-39) H 10/17/17 04:55 Serum Total Protein 5.6 g/dL (6.4-8.9) L 10/17/17 04:55 Albumin 3.1 g/dL (3.5-5.7) L 10/17/17 04:55 HDL Cholesterol 33 mg/dL (40-59) L 10/15/17 03:45 Urine Clarity Cloudy (Clear) A 10/14/17 11:15 Urine Ketones Trace mg/dL (Negative) H 10/14/17 11:15 Urine Bilirubin Small (Negative) H 10/14/17 11:15 Ur Leukocyte Esterase Moderate (Negative) H 10/14/17 11:15 Urine Microscopic RBC 5-15 per hpf (0-3) H 10/14/17 11:15 Urine Microscopic WBC 15-30 per hpf (0-3) H 10/14/17 11:15 Ur Squamous Epith Cells Many per lpf (None-Few) H 10/14/17 11:15 Ur Culture Indicated? NO. (NO) A 10/14/17 11:15 Consult Discharge Plan - Plan Referrals: Silvio Disla MD [Primary Care Provider] - Shawn Clark Jr, MD [Partnered Physician] - 10/21/17 8:00 am
--- NOTE | 2017-10-17 19:38 | Event Note ---
Date of Encounter: 10/17/17 Time of Encounter: 19:11 Alerted by pts. nurse MAKAYLA Calixto that pt. was going to have surgical intervention for lumbar stenosis. On admission, pt. exhibited new onset of falls over the past several weeks d/t weakness. Pt. seen by Neurology w/ recommendations per Dr. Kimbrough that patient's worsening neuro symptoms most likely secondary to severe spinal canal stenosis and to consult Dr. Clark of Neurosurgery. Pt. examined by Dr. Clark with concern for worsening neurological status. Dr. Clark's recommendation is for surgery in the form of a laminectomy L3-4. If patient amenable to the procedure, he would be an add -on to the surgery schedule on October 18. Pt. requires medical clearance for procedure. Pts. PMH includes diabetes controlled w/insulin, HLD, HTN, thyroid disease, and GERD. Pt. had Echocardiogram on 10/15/17 which showed LVEF of 55%, normal LV wall thickness and function, mildly dilated left ventricle, atypical septal motion consistent with bundle branch block, mild left ventricular diastolic dysfunction, right ventricular size was not well visualized but function appear grossly normal, no evidence of pulmonary hypertension identified and no significant valvular dysfunction. Labs grossly normal w/ exception of hypocalcemia of 8.4 for which pt. will receive calcium supplementation and new calcium level drawn at 04:00. Pt. is afebrile with latest VS: temp 97.6F, HR 68, RR 19, BP 153/78, and SpO2 93% on RA. Pt. has no hx of [place] or stent placement. EKG ordered at 20:01:19 shows sinus rhythm with pattern consistent with pulmonary disease, left anterior fascicular block, and nonspecific T-wave abnormality. Pt. has medical clearance for laminectomy L3-4 tomorrow.
[2017-10-17] MEDS: Insulin DETEMIR 100 UNIT/ML X5UNITS SQ SCH (20:50)
[2017-10-17] MEDS: Melatonin 3 MG TABLET PO PRN (20:51)
[2017-10-18] MEDS: Pantoprazole 40 MG VIAL IVP SCH (06:02)
[2017-10-18] MEDS: *HR* Heparin 5,000 UNIT/ML VIAL SQ SCH ×2 (06:03→12:57)
[2017-10-18] MEDS: Levothyroxine 25 MCG TABLET PO SCH (06:03)
[2017-10-18] MEDS ORDERED: Bacitracin 50,000 UNIT, Polymyxin B Sulfate 500,000 UNIT, Sodium Chloride IRRigation 1,... IR ONE (07:15)
[2017-10-18] MEDS: Insulin LISPRO 300 UNITS/3 ML VIAL SQ SCH ×3 (07:48→17:35)
[2017-10-18 08:35] LABS: Basophils % 0.4 %; Eosinophils # 0.1 K/mcL (0.0-0.6); Eosinophils % 1.7 %; Hematocrit 43.3 % (37.5-50.1); Hemoglobin 14.3 g/dL (12.9-16.9); Immature Granulocytes % 0.2 % (0-4); Lymphocytes # 0.7 K/mcL (0.6-4.6); Lymphocytes % 14.2 %; Mean Corpuscular Hemoglobin 32.1 pg (28.0-33.3); Mean Corpuscular Volume 97.3 fL (83.0-100.0); Mean Platelet Volume 10.5 fL (9.4-12.4); Monocytes # 0.4 K/mcL (0.0-1.3); Monocytes % 8.2 %; Neutrophils # 3.6 K/mcL (1.6-8.9); Platelet Count 103 K/mcL (140-400); Red Blood Count 4.45 M/mcL (4.19-5.50); Segmented Neutrophils % 75.3 %
--- NOTE | 2017-10-18 13:27 | Internal Med Progress Note ---
Date of Encounter: 10/18/17 Time of Encounter: 13:24 - Assessment and plan (1) Spinal stenosis of lumbar region Current Visit: Yes Status: Acute Assessment and plan: Lumbar MRI L3 vertebroplasty. Old L4 fracture with loss of 25% of vertebral body height. Severe central canal stenosis at L3-L4 of multifactorial etiology. Large far left lateral disc protrusion resulting in effacement of the traversing left L1 nerve root. Mild central canal stenosis at L2-L3." Patient was seen by Dr. Clark yesterday recommending laminectomy L3-4-he has been nothing by mouth and is ready for surgery Patient will undergo physical therapy occupational therapy inpatient rehabilitation Denies any pain or discomfort no numbness or tingling to lower extremities no loss of bowel or bladder Qualifiers: Neurogenic claudication status: unspecified Qualified Code(s): M48.061 - Spinal stenosis, lumbar region without neurogenic claudication (2) Dyspnea Current Visit: Yes Status: Acute Assessment and plan: Appears to be stable at this time Patient has been experiencing dyspnea for several weeks denies any history of COPD chest x-ray shows heart size is enlarged pulmonary vascularity is normal no pleural effusion or pneumothorax VQ scan is low probability for PE-SPO2 is stable on room air-supplemental oxygen as needed falls precaution Evaluating per PT OT recommending rehabilitation inpatient Qualifiers: Dyspnea type: dyspnea on exertion Qualified Code(s): R06.09 - Other forms of dyspnea (3) Multiple falls Current Visit: Yes Status: Acute Assessment and plan: Patient does have a history of past falls however the past 3 days he is followed every day due to weakness and bilateral lower extremities. Most likely secondary to severe spinal canal stenosis. B12 and folate- WNL Patient had laminectomy today with Dr. Clark PTOT has been evaluated- recommending inpatient rehabilitation awaiting placement per social media sr strategy manager No pain or discomfort at this time denies any numbness or tingling to lower extremities no loss of bowel or bladder (4) Weakness of both lower extremities Current Visit: Yes Status: Acute Assessment and plan: MRI completed which did show L3 vertebroplasty. Old L4 fracture with loss of 25 % of vertebral body height. Severe central canal stenosis at L3-L4 of multifactorial etiology. Large far left lateral disc protrusion resulting in effacement of the traversing left L1 nerve root. Mild central canal stenosis at L2-L3." Evaluated by Dr. Clark last night recommending surgery laminectomy today PT OT consulted-awaiting rehabilitation placement Neurology was consulted-feels weakness most likely related to spinal stenosis Continue with falls precautions (5) Diabetes Current Visit: Yes Status: Chronic Assessment and plan: Stable at this time Continue with basal insulin as well as sliding scale Accu- Cheks before meals and at bedtime Qualifiers: Diabetes mellitus type: type 2 Diabetes mellitus correction insulin use: unspecified correction insulin use status Diabetes mellitus complication status : with unspecified complications Qualified Code(s): E11.8 - Type 2 diabetes mellitus with unspecified complications (6) HTN (hypertension) Current Visit: Yes Status: Chronic Assessment and plan: Blood pressure is stable at this time-orthostatics stable-continued Cozaar continue to monitor. Qualifiers: Hypertension type: essential hypertension Qualified Code(s): I10 - Essential (primary) hypertension (7) HLD (hyperlipidemia) Current Visit: Yes Status: Chronic Assessment and plan: Lipid panel stable continue Zocor Qualifiers: Hyperlipidemia type: pure hypercholesterolemia Qualified Code(s): E78.00 - Pure hypercholesterolemia, unspecified; E78.0 - Pure hypercholesterolemia (8) Thyroid disease Current Visit: Yes Status: Chronic Assessment and plan: Continue Synthroid (9) GERD (gastroesophageal reflux disease) Current Visit: Yes Status: Chronic Assessment and plan: Protonix Qualifiers: Esophagitis presence: esophagitis presence not specified Qualified Code(s) : K21.9 - Gastro-esophageal reflux disease without esophagitis (10) Depression Current Visit: Yes Status: Chronic Assessment and plan: Continue Zoloft presently stable Qualifiers: Depression Type: unspecified Qualified Code(s): F32.9 - Major depressive disorder, single episode, unspecified (11) DVT prophylaxis Current Visit: Yes Status: Acute Assessment and plan: Was receiving heparin subcutaneous we will hold for now due to pending surgery and SCDs for now - Time Spent With Patient Total time spent is greater than 50% in coordination of care (as documented) at patient's floor/unit and/or counseling patient: - Subjective Interval history: Patient seen and examined at bedside. No changes since yesterday denies any pain or discomfort at this time. Patient was seen by Dr. Clark last night who is recommending laminectomy. Patient is in agreement -he is hemodynamically stable at this time - Constitutional Vitals: Temp Pulse Resp BP Pulse Ox 97.7 F 66 14 124/74 94 10/18/17 11:32 10/18/17 11:32 10/18/17 11:32 10/18/17 11:32 10/18/17 11:32 General appearance: Present: cooperative, A&O X 3, pleasant, no acute distress, obese, answers questions appropriately - Head Head exam: Present: atraumatic, normocephalic - Eye Eye exam: Present: PERRL, conjuntiva pink, sclera anicteric Pupils: Present: PERRL - Neck Neck exam general surgery: Present: supple, trachea midline. Absent: lymphadenopathy - Respiratory Respiratory exam: Present: CTAB. Absent: accessory muscle use, rales, rhonchi, wheezes - Cardiovascular Cardiovascular exam: Present: RRR, +S1, +S2. Absent: diastolic murmur, gallop, rubs, systolic murmur - GI/Abdominal GI/Abdominal exam: Present: normal bowel sounds, soft, no peritoneal signs. Absent: distended, tenderness - Extremities Exam Extremities exam: Present: warm, radial pulses palpable and symmetrical. Absent : calf tenderness, cyanotic, pedal edema - Neurological Exam Neurological exam: Present: CN II-XII intact, oriented X3, no focal deficits. Absent: pronater drift, facial droop, speech deficit - Skin Skin exam: Present: dry, intact Internal Medicine: Result - Labs CBC & Chem 7: 10/18/17 07:38 10/17/17 04:55 Labs: Short CBC 10/18/17 Range/Units 07:38 WBC 4.7 (4.3-11.1) K/mcL Hgb 14.3 (12.9-16.9) g/dL Hct 43.3 (37.5-50.1) % Plt Count 103 L (140-400) K/mcL Neutrophils # 3.6 (1.6-8.9) K/mcL BMP 10/18/17 04:00 Calcium 8.6 Consult Discharge Plan - Plan Referrals: Silvio Disla MD [Primary Care Provider] - Shawn Clark Jr, MD [Partnered Physician] - 10/21/17 8:00 am
--- NOTE | 2017-10-18 13:39 | Anesthesia Evaluation PreOp ---
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 Anxiety/Depression ) Other Medical History: Diabetes Type II (IDDM), Thyroid, GERD Anesthesia History: No Prior Anesthetic Complications, Past Anesthesia (L-TKR, R -knee scope, Back surgery x 2,) Alcohol Use: none Drug use: none Medications and Allergies Insulin Glargine,Hum.rec.anlog [Lantus Solostar] 13 unit SQ HS 10/14/17 [History ] Levothyroxine Sodium [Levo-T] 25 mcg PO QAM 10/14/17 [History] Levothyroxine Sodium [Levo-T] 200 mcg PO QAM 10/14/17 [History] Losartan Potassium [Cozaar] 50 mg PO DAILY 10/14/17 [History] Sertraline [Zoloft] 100 mg PO DAILY 10/14/17 [History] Simvastatin [Zocor] 40 mg PO HS 10/14/17 [History] raNITIdine HCl [Zantac] 150 mg PO BID 10/14/17 [History] 3 Allergy/AdvReac Type Severity Reaction Status Date / Time acetaminophen [From Vicodin] AdvReac See Verified 10/14/17 10:24 Comments hydrocodone [From Vicodin] AdvReac See Verified 10/14/17 10:24 Comments - Meds/Allergy Pre-op Review Medications Reviewed: Yes Allergies Reviewed: Yes Beta Blockers on Current Med List: No Anesthesia Results - Labs 10/18/17 07:38 10/17/17 04:55 Laboratory Results Laboratory Tests 10/17/17 10/18/17 04:55 07:38 WBC 4.7 Hgb 14.3 Hct 43.3 Plt Count 103 L Sodium 138 Potassium 4.1 Chloride 104 Carbon Dioxide 27 Creatinine 1.05 Est GFR (Non-Af Amer) > 60 AST 49 H ALT 13 Impressions Chest X-Ray 10/14/17 10:54 IMPRESSION: No acute cardiopulmonary disease. Cardiomegaly without evidence of failure. D/ / Kiet Aguirre MD / Kiet Aguirre MD Interpreting Provider: Kiet Aguirre MD Head CT 10/14/17 10:55 IMPRESSION: Stable appearance of the brain with no acute intracranial abnormality. There is age-appropriate cerebral atrophy with evidence of chronic periventricular small vessel ischemic disease. D/ / Albino Funes MD / Albino Funes MD Interpreting Provider: Albino Funes MD Lumbar Spine MRI 10/14/17 12:09 IMPRESSION: L3 vertebroplasty. Old L4 fracture with loss of 25% of vertebral body height. Severe central canal stenosis at L3-L4 of multifactorial etiology. Large far left lateral disc protrusion resulting in effacement of the traversing left L1 nerve root. Mild central canal stenosis at L2-L3. D/ / 10/14/2017 14:59:35 Claudy Montanez MD / hernando Interpreting Provider: Claudy Montanez MD Pulmonary Perfusion Imaging 10/14/17 14:33 IMPRESSION: Low probability for pulmonary embolus. D/ / Kyler Martinez MD / Kyler Martinez MD Interpreting Provider: Kyler Martinez MD Echocardiogram 10/15/17 09:41 Impressions: LVEF 55%. Normal LV wall thickness and function. Mildly dilated left ventricle. Atypical septal motion consistent with bundle branch block. Mild left ventricular diastolic dysfunction. Right ventricular size was not well visualized. Function appeared grossly normal. No evidence of pulmonary hypertension identified. RVSP was not well obtained. No significant valvular dysfunction. Left Ventricular Wall Motion: Rest Echo Findings All wall segments showed normal motion. Findings: Study Quality * Technically sub-optimal due to body habitus. ECG Findings * Sinus rhythm with BBB. Left Ventricle * LVEF 55%. * Normal LV wall thickness and function. * Mildly dilated left ventricle. * Atypical septal motion consistent with bundle branch block. * Mild left ventricular diastolic dysfunction. Right Ventricle * Right ventricular size was not well visualized. Function appeared grossly normal. Left Atrium * Grossly severely dilated left atrium. Right Atrium * Mildly dilated right atrium. Aortic Valve * Aortic valve not well visualized. * No aortic regurgitation. * No aortic stenosis. Mitral Valve * Normal mitral valve structure and function. * No mitral regurgitation. * No mitral stenosis. Tricuspid Valve * Normal tricuspid valve structure and function. * Trace tricuspid regurgitation. * No evidence of pulmonary hypertension identified. RVSP was not well obtained. Pulmonic Valve * Normal pulmonic valve structure and function. * No pulmonic regurgitation. Aorta * Normally sized aortic root. Pericardium * The pericardium appears normal. IVC * Normal IVC dimensions and inspiratory collapse. Pulmonary Artery * Normal visualized portions of the main pulmonary artery. - Imaging EKG: image reviewed Anesthesia Exam Vital Signs Temp Pulse Resp BP Pulse Ox 10/18/17 11:32 97.7 F 66 14 124/74 94 10/18/17 07:16 97.2 F L 64 15 156/87 95 10/18/17 03:49 97.9 F 69 20 150/77 94 10/17/17 23:25 98.7 F 63 17 162/94 94 10/17/17 18:54 97.6 F 68 19 153/78 93 10/17/17 16:08 98 F 64 17 132/66 95 Intake and Output 10/17/17 10/18/17 10/18/17 23:59 07:59 15:59 Intake Total 0 / 0 Output Total 450 / 450 675 / 675 Balance -450 / -450 -675 / -675 0 / 0 Intake: Oral 0 / 0 Output: Urine 450 / 450 675 / 675 Other: Meal npo Percent of Meal Consumed 0% # Voids 1 Weight 136 kg Blood Glucose* 158 112 118 Patient Weight 10/18/17 23:59 Weight 136 kg - HEENT Pupil (Motor): Pupils equal, EOMI Mallampati: III Teeth: Normal Oral Opening: Greater than 3 - TECHNICAL SOLUTIONS CONSULTANT LOC: Oriented TECHNICAL SOLUTIONS CONSULTANT Motor: Normal RUE, Normal LUE, Normal RLE, Normal LLE, Normal Face TECHNICAL SOLUTIONS CONSULTANT Sensory: Normal: RUE, LUE, RLE, LLE, Face - Cardiac Rhythm: Regular Murmur: None - Pulmonary Breath Sounds: bilateral Clear Respiratory Effort: Symmetrical Anesthesia Assess/Plan ASA Score: 3 (HTN, Chol, Obesity, Snores/DEBBI, DM) Modified Jeni Scale for Level of Consciousness: Cooperative, oriented, and tranquil Anesthetic Plan: General Monitoring Plan: Standard Monitors Recovery Plan: PACU Anes Supervising Prov Stmt: Pt seen/evaluated, R&B discussed, questions answered and consent obtained. Clark Naidu MD
[2017-10-18] MEDS ORDERED: Pregabalin 75 MG CAPSULE ONE ×2 (14:05→14:08)
[2017-10-18] MEDS ORDERED: Acetaminophen IV 1,000 MG/100 ML INFUS..BTL ONE (14:05)
[2017-10-18] MEDS ORDERED: EPHEDrine 50 MG/ML VIAL ONE (14:49)
[2017-10-18] MEDS ORDERED: *HR* FentaNYL (PF) 100 MCG/2 ML VIAL ONE (14:49)
[2017-10-18] MEDS ORDERED: Lidocaine -MPF 2% 2 ML VIAL ONE (14:49)
[2017-10-18] MEDS ORDERED: *HR* Propofol 200 MG/20 ML VIAL IVP ONE (14:49)
[2017-10-18] MEDS ORDERED: *HR* Succinylcholine 200 MG/10 ML VIAL IVP ONE (14:49)
[2017-10-18] MEDS ORDERED: Dexamethasone 4 MG/ML VIAL ONE (14:50)
[2017-10-18] MEDS ORDERED: Ondansetron 4 MG/2 ML VIAL ONE (14:50)
[2017-10-18] MEDS ORDERED: *HR* PHENYLEPHRINE 1,000 MCG/10 ML SYRINGE IVP ONE (15:07)
[2017-10-18] MEDS ORDERED: Ondansetron 4 MG/2 ML VIAL IVP ONE (15:09)
[2017-10-18] MEDS ORDERED: *HR* Labetalol 20 MG/4 ML SYRINGE IVP PRN (15:09)
[2017-10-18] MEDS ORDERED: MORPHINE SUL Oral CONC 10 MG/0.5 ML ORAL.SYG SL PRN (15:09)
[2017-10-18] MEDS ORDERED: *HR* FentaNYL (PF) 100 MCG/2 ML VIAL IVP PRN (15:09)
--- NOTE | 2017-10-18 16:08 | Orthopedic Operative Note ---
Date of procedure: 10/18/17 Pre-op diagnosis: Lumbar stenosis, leg weakness Post-op diagnosis: same Operation/Findings: Laminectomy L3-4: The patient was brought to the operative theater where he underwent general endotracheal anesthesia. He was given antibiotics prior to the start of the procedure. Compression boots and stockings were used for deep vein thrombosis prophylaxis. The patient was placed prone on a Андрей table. The back was prepped and draped in the usual sterile fashion. An incision was marked and centered over the L3-L4 interspaces in the midline. We used Bovie cautery to make an incision and then this incision was deepened through the lumbar fascia. Bovie cautery and Millard elevators were used to reflect the paraspinal musculature to the lateral extent of the L3-L4 facet joints bilaterally. Eliza clamps were placed over the spinous processes of L3 and L4 and an intraoperative lateral fluorograph was obtained. A discusssion was held between the radiologist and surgeon who both confirmed we were at the correct operative level. We then removed the supraspinous and interspinous ligaments between L3 and L4 and subsequently removed the ligamentum flavum from its origin on the distal undersurface of the L3 lamina. The ligamentum flavum was noted to be quite hypertrophied as well as the facets were hypertrophied. This required performing a laminectomy of L3 including undercutting of the facets to decompress the lateral recesses. We noted a small durotomy which was repaired and closed with DuraGen and DuraSeal. After the decompression was complete we checked the foramen and the traversing nerve roots at L3-4 and they were found to be free and patent. We copiously irrigated the wound and then closed the wound in layers with 1 Vicryl for the fascia, 2-0 Vicryl for the subcutaneous tissue, and Dermabond was used for skin closure. Sterile dressings were placed over the wound, the patient was turned supine in a hospital bed, and was extubated in the operative theater. All sponge needles and instrument counts were correct at the end of the procedure. The patient tolerated the procedure well without complications. Anesthesia: GETA Surgeon: Shawn Clark Jr Was there an anesthesiologists' assistant present: No Estimated blood loss (cc): 25 Specimen: None Disposition: PACU
--- NOTE | 2017-10-18 16:24 | Electrocardiograph Report ---
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
--- NOTE | 2017-10-18 16:26 | Electrocardiograph Report ---
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
[2017-10-18] MEDS ORDERED: *HR* HYDROmorphone 2 MG TABLET PO ONE (17:05)
--- NOTE | 2017-10-18 17:44 | Anesthesia Evaluation Post Op ---
Date of Encounter: 10/18/17 Time of Encounter: 17:35 - Vital Signs Vital Signs: Vital Signs/O2 Sat, Most Current Temp Pulse Resp BP Pulse Ox 97.9 F 71 20 154/77 94 10/18/17 17:17 10/18/17 17:37 10/18/17 17:37 10/18/17 17:27 10/18/17 17:37 - Lungs Lungs: Clear Ascult./Percussion - Airway Airway: Non-obstructed - Cardiovascular Regular Rate - Mental Status Mental Status: Alert & Oriented, Answers Appropriately - Pain Pain Scale: 4 Pain Scale used: Numeric (1 - 10) - Nausea Vomiting Nausea Vomiting: Not Present - Hydration Hydration: Ice chips, Has not voided - Discharge PostOp Status: Transfer Patient to floor
[2017-10-18] MEDS ORDERED: Naloxone 0.4 MG/ML INJ IVP PRN (17:50)
[2017-10-18] MEDS ORDERED: Ondansetron 4 MG/2 ML VIAL IVP PRN (17:50)
[2017-10-18] MEDS ORDERED: Ibuprofen 400 MG TABLET PO PRN (17:50)
[2017-10-18 20:21] LABS: Estimated Average Glucose 114 mg/dl; Hemoglobin A1C 5.6 %
[2017-10-18] MEDS: Famotidine 20 MG TABLET PO SCH (20:36)
[2017-10-18] MEDS: Melatonin 3 MG TABLET PO PRN (20:36)
[2017-10-19] MEDS: *HR* OxyCODONE Immed Rel 5 MG TABLET PO PRN ×4 (08:09→23:25)
[2017-10-19] MEDS: Famotidine 20 MG TABLET PO SCH ×2 (08:10→20:22)
[2017-10-19] MEDS: traMADol 50 MG TABLET PO PRN ×2 (11:30→17:27)
[2017-10-19] MEDS ORDERED: D5% in Water 1,000 ML IVC PRN (14:15)
[2017-10-19] MEDS ORDERED: Dextrose Gel 15 GM/37.5 ML TUBE PO PRN ×2 (14:15)
[2017-10-19] MEDS ORDERED: *HR* Dextrose 50 % in Water (Syg) 50 ML SYRINGE IVP PRN (14:15)
[2017-10-19] MEDS ORDERED: Insulin LISPRO 300 UNITS/3 ML VIAL SQ SCH (16:30)
--- NOTE | 2017-10-19 17:01 | Orthopedics Progress Note ---
Date of Encounter: 10/19/17 Time of Encounter: 08:40 - Assessment and Plan (1) Status post laminectomy Current Visit: Yes Status: Acute (2) Weakness of both lower extremities Current Visit: Yes Status: Chronic (3) Spinal stenosis of lumbar region Current Visit: Yes Status: Chronic Qualifiers: Neurogenic claudication status: unspecified Qualified Code(s): M48.061 - Spinal stenosis, lumbar region without neurogenic claudication Subjective Principal diagnosis: Leg weakness, lumbar stenosis, falls Interval history: POD#1 Date of procedure: 10/18/17 Pre-op diagnosis: Lumbar stenosis, leg weakness Post-op diagnosis: same Operation/Findings: Laminectomy L3-4 The patient continues to complain of pain in the left lower extremity. He states this is unchanged since his surgery. Afebrile vital signs are stable. Incision is clean dry and intact. Neurovascularly intact with regard to bilateral lower extremities. Fires all upper and lower extremity motor groups. Assessment: Stable postoperative. Plan: Reviewed postoperative restrictions and precautions. Patient verbalized understanding. Mobilize with therapy Continue analgesics as needed Discharge planning - therapy is recommending inpatient rehabilitation. Dressings- dressing to be changed approximately every 24 hours as needed. Dressing not to be left in place more than 72 hours. If any saturation or wetting of the dressing occurs in must be removed. Dressing may be removed permanently in 5 days. Dressing is to be changed with any bathing that occurs. Patient is to shower only. No soaking in a pool, tub, or hot tub. Leave skin glue mesh and stitches intact to skin. Patient is to keep outpatient follow-up as scheduled with [facility]. Objective Vital signs: Vital Signs Temp Pulse Resp BP Pulse Ox 10/19/17 15:43 98.2 F 74 16 150/66 95 10/19/17 11:08 98.1 F 71 15 131/79 95 10/19/17 06:40 97.7 F 64 16 169/80 94 10/19/17 03:34 98.0 F 68 16 138/81 94 10/18/17 21:10 97.5 F L 75 14 144/77 93 10/18/17 20:10 97.7 F 80 15 152/84 91 10/18/17 19:10 98.0 F 73 15 147/74 95 10/18/17 18:39 98.2 F 72 16 135/81 94 10/18/17 18:00 70 16 124/73 94 10/18/17 17:42 97.6 F 70 20 140/76 95 10/18/17 17:37 71 20 145/76 94 10/18/17 17:27 68 22 154/77 95 10/18/17 17:17 97.9 F 72 22 148/76 96 10/18/17 17:07 70 20 145/78 94 10/18/17 16:57 70 20 143/70 94 Intake and Output 10/19/17 10/19/17 10/19/17 07:59 15:59 23:59 Intake Total 780 / 780 Output Total 700 / 700 125 / 125 Balance -700 / -700 655 / 655 Intake: Oral 780 / 780 Output: Urine 700 / 700 125 / 125 Other: Meal Lunch Percent of Meal Consumed 100% Weight 139.6 kg Blood Glucose* 114 143 Patient Weight 10/19/17 23:59 Weight 139.6 kg - Labs CBC & BMP: 10/18/17 07:38 10/17/17 04:55 Labs: Abnormal lab results Plt Count 103 K/mcL (140-400) L 10/18/17 07:38 Nucleated RBCs/100 WBC 0.4 /100 WBC (0) H 10/16/17 03:02 Glucose 126 mg/dL (70-105) H 10/17/17 04:55 POC Glucose 200 mg/dL (70-99) H 10/18/17 20:38 Total Bilirubin 1.6 mg/dL (0.3-1.0) H 10/17/17 04:55 AST 49 Units/L (13-39) H 10/17/17 04:55 Serum Total Protein 5.6 g/dL (6.4-8.9) L 10/17/17 04:55 Albumin 3.1 g/dL (3.5-5.7) L 10/17/17 04:55 HDL Cholesterol 33 mg/dL (40-59) L 10/15/17 03:45 Urine Clarity Cloudy (Clear) A 10/14/17 11:15 Urine Ketones Trace mg/dL (Negative) H 10/14/17 11:15 Urine Bilirubin Small (Negative) H 10/14/17 11:15 Ur Leukocyte Esterase Moderate (Negative) H 10/14/17 11:15 Urine Microscopic RBC 5-15 per hpf (0-3) H 10/14/17 11:15 Urine Microscopic WBC 15-30 per hpf (0-3) H 10/14/17 11:15 Ur Squamous Epith Cells Many per lpf (None-Few) H 10/14/17 11:15 Ur Culture Indicated? NO. (NO) A 10/14/17 11:15 - VTE Documentation of Mechanical Device: Intermittent pneumatic compression device Consult Discharge Plan - Plan Referrals: Silvio Disla MD [Primary Care Provider] - Shawn Clark Jr, MD [Partnered Physician] - 11/02/17 11:30 am
[2017-10-19] MEDS: Insulin LISPRO 300 UNITS/3 ML VIAL SQ SCH ×2 (17:27→20:21)
--- NOTE | 2017-10-19 17:29 | Internal Med Progress Note ---
Date of Encounter: 10/19/17 Time of Encounter: 17:27 - Assessment and plan (1) Spinal stenosis of lumbar region Current Visit: Yes Status: Chronic Assessment and plan: Status post L3-L4 lumbar decompression with laminectomy. Patient is stable, awaiting for placement. Qualifiers: Neurogenic claudication status: unspecified Qualified Code(s): M48.061 - Spinal stenosis, lumbar region without neurogenic claudication (2) Dyspnea Current Visit: Yes Status: Acute Assessment and plan: Appears to be stable at this time Patient has been experiencing dyspnea for several weeks denies any history of COPD chest x-ray shows heart size is enlarged pulmonary vascularity is normal no pleural effusion or pneumothorax VQ scan is low probability for PE-SPO2 is stable on room air-supplemental oxygen as needed falls precaution Evaluating per PT OT recommending rehabilitation inpatient Qualifiers: Dyspnea type: dyspnea on exertion Qualified Code(s): R06.09 - Other forms of dyspnea (3) Weakness of both lower extremities Current Visit: Yes Status: Chronic Assessment and plan: MRI completed which did show L3 vertebroplasty. Old L4 fracture with loss of 25 % of vertebral body height. Severe central canal stenosis at L3-L4 of multifactorial etiology. Large far left lateral disc protrusion resulting in effacement of the traversing left L1 nerve root. Mild central canal stenosis at L2-L3." Evaluated by Dr. 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 insulin use: unspecified jukebox checker insulin use status Diabetes mellitus complication status : with unspecified complications Qualified Code(s): E11.8 - Type 2 diabetes mellitus with unspecified complications (5) HTN (hypertension) Current Visit: Yes Status: Chronic Qualifiers: Hypertension type: essential hypertension Qualified Code(s): I10 - Essential (primary) hypertension (6) HLD (hyperlipidemia) Current Visit: Yes Status: Chronic Assessment and plan: Lipid panel stable continue Zocor Qualifiers: Hyperlipidemia type: pure hypercholesterolemia Qualified Code(s): E78.00 - Pure hypercholesterolemia, unspecified; E78.0 - Pure hypercholesterolemia (7) Thyroid disease Current Visit: Yes Status: Chronic Assessment and plan: Continue Synthroid (8) GERD (gastroesophageal reflux disease) Current Visit: Yes Status: Chronic Qualifiers: Esophagitis presence: esophagitis presence not specified Qualified Code(s) : K21.9 - Gastro-esophageal reflux disease without esophagitis (9) DVT prophylaxis Current Visit: Yes Status: Acute Assessment and plan: Was receiving heparin subcutaneous we will hold for now due to pending surgery and SCDs for now (10) Depression Current Visit: Yes Status: Chronic Assessment and plan: Continue Zoloft presently stable Qualifiers: Depression Type: unspecified Qualified Code(s): F32.9 - Major depressive disorder, single episode, unspecified - Time Spent With Patient Total time spent is greater than 50% in coordination of care (as documented) at patient's floor/unit and/or counseling patient: - Subjective Interval history: Patient seen and examined in the room, he has no complaints at this time. - Constitutional Vitals: Temp Pulse Resp BP Pulse Ox 98.2 F 74 16 150/66 95 10/19/17 15:43 10/19/17 15:43 10/19/17 15:43 10/19/17 15:43 10/19/17 15:43 General appearance: Present: cooperative, A&O X 3, pleasant, no acute distress, obese, answers questions appropriately Exam: PHYSICAL EXAMINATION: GENERAL APPEARANCE: The patient is alert, oriented and in no acute distress. HEENT: Head is normocephalic. The sinuses are nontender. Pupils are equal and reactive. The nares are patent. Oropharynx clear without lesions. NECK: Supple without lymphadenopathy. HEART: Regular rate and rhythm. LUNGS: No crackles or wheezes are heard. ABDOMEN: Soft, nontender, nondistended with good bowel sounds heard. Inguinal area is normal. EXTREMITIES: Without cyanosis, clubbing or edema. NEUROLOGICAL: Gross nonfocal. Bilateral lower extremity weakness noted. SKIN: Warm and dry without any rash. Internal Medicine: Result - Labs CBC & Chem 7: 10/18/17 07:38 10/17/17 04:55 - VTE Documentation of Mechanical Device: Intermittent pneumatic compression device Consult Discharge Plan - Plan Referrals: Silvio Disla MD [Primary Care Provider] - Shawn Clark Jr, MD [Partnered Physician] - 11/02/17 11:30 am
[2017-10-19] MEDS: Insulin DETEMIR 100 UNIT/ML X5UNITS SQ SCH (20:21)
[2017-10-20] MEDS: *HR* OxyCODONE Immed Rel 5 MG TABLET PO PRN ×4 (03:26→20:13)
[2017-10-20 06:27] LABS: Basophils % 0.3 %; Red Cell Distribution Width 14.4 % (11.5-14.5)
[2017-10-20 06:29] LABS: Eosinophils # 0.1 K/mcL (0.0-0.6); Hematocrit 41.9 % (37.5-50.1); Hemoglobin 14.1 g/dL (12.9-16.9); Immature Granulocytes % 0.3 % (0-4); Immature Platelets 3.7 % (1.1-6.1); Lymphocytes # 0.5 K/mcL (0.6-4.6); Lymphocytes % 7.5 %; Mean Corpuscular HGB Conc 33.7 g/dL (31.6-35.5); Mean Corpuscular Volume 98.1 fL (83.0-100.0); Mean Platelet Volume 10.6 fL (9.4-12.4); Monocytes # 0.7 K/mcL (0.0-1.3); Monocytes % 9.8 %; Platelet Count 104 K/mcL (140-400); Red Blood Count 4.27 M/mcL (4.19-5.50); Segmented Neutrophils % 81.1 %
[2017-10-20 06:37] LABS: Neutrophils # 5.8 K/mcL (1.6-8.9)
[2017-10-20 06:48] LABS: Alanine Aminotransferase 9 Units/L (7-52); Albumin 3.2 g/dL (3.5-5.7); Albumin/Globulin Ratio 1.2 (1.1-2.2); Alkaline Phosphatase 76 Units/L (34-104); Aspartate Amino Transferase 24 Units/L (13-39); BUN/Creatinine Ratio 20 (6-26); Bilirubin,Total 1.6 mg/dL (0.3-1.0); Blood Urea Nitrogen 21 mg/dL (8-23); Calcium 8.2 mg/dL (8.6-10.3); Carbon Dioxide 28 mEq/L (23-29); Chloride 101 mEq/L (98-107); Globulin 2.7 g/dL (2.4-3.5); Glucose 140 mg/dL (70-105); Osmolality,Calculated 285 (280-300); Potassium 4.4 mEq/L (3.5-5.1); Sodium 135 mEq/L (136-145); Total Protein 5.9 g/dL (6.4-8.9); eGFR For African Americans > 60 (> 60); eGFR For Non-African Americans > 60 (> 60)
[2017-10-20] MEDS: Insulin LISPRO 300 UNITS/3 ML VIAL SQ SCH ×4 (07:28→19:54)
[2017-10-20] MEDS: Famotidine 20 MG TABLET PO SCH ×2 (08:15→20:14)
--- NOTE | 2017-10-20 08:52 | Orthopedics Progress Note ---
Date of Encounter: 10/20/17 Time of Encounter: 08:52 - Assessment and Plan (1) Status post laminectomy Current Visit: Yes Status: Acute (2) Weakness of both lower extremities Current Visit: Yes Status: Chronic (3) Spinal stenosis of lumbar region Current Visit: Yes Status: Chronic Qualifiers: Neurogenic claudication status: unspecified Qualified Code(s): M48.061 - Spinal stenosis, lumbar region without neurogenic claudication Subjective Principal diagnosis: Leg weakness, lumbar stenosis, falls Interval history: POD#2 Date of procedure: 10/18/17 Pre-op diagnosis: Lumbar stenosis, leg weakness Post-op diagnosis: same Operation/Findings: Laminectomy L3-4 The patient continues to complain of pain in the left lower extremity, however, he states it is improved today and he has improved sensation to the LLE. Afebrile vital signs are stable. Incision is clean dry and intact. Neurovascularly intact with regard to bilateral lower extremities. No calf tenderness to palpation. Fires all upper and lower extremity motor groups. Assessment: Stable postoperative. Plan: Reviewed postoperative restrictions and precautions. Patient verbalized understanding. Mobilize with therapy Continue analgesics as needed Discharge planning - therapy is recommending inpatient rehabilitation. Dressings- dressing to be changed approximately every 24 hours as needed. Dressing not to be left in place more than 72 hours. If any saturation or wetting of the dressing occurs in must be removed. Dressing may be removed permanently in 5 days. Dressing is to be changed with any bathing that occurs. Patient is to shower only. No soaking in a pool, tub, or hot tub. Leave skin glue mesh and stitches intact to skin. Patient is to keep outpatient follow-up as scheduled with [facility]. Objective Vital signs: Vital Signs Temp Pulse Resp BP Pulse Ox 10/20/17 07:13 98.5 F 111 15 136/86 94 10/20/17 02:58 99.1 F 97 14 146/78 94 10/19/17 22:33 98.6 F 85 16 166/63 91 10/19/17 19:22 98.6 F 75 16 161/74 90 10/19/17 15:43 98.2 F 74 16 150/66 95 10/19/17 11:08 98.1 F 71 15 131/79 95 Intake and Output 10/19/17 10/20/17 10/20/17 23:59 07:59 15:59 Intake Total 840 / 840 Output Total 150 / 150 500 / 500 Balance 690 / 690 -500 / -500 Intake: Oral 840 / 840 Output: Urine 150 / 150 500 / 500 Other: Meal Dinner Percent of Meal Consumed 100% Weight 137.9 kg Blood Glucose* 141 120 Patient Weight 10/20/17 23:59 Weight 137.9 kg - Labs CBC & BMP: 10/20/17 05:57 10/20/17 05:57 Labs: Abnormal lab results Plt Count 104 K/mcL (140-400) L 10/20/17 05:57 Lymphocytes # 0.5 K/mcL (0.6-4.6) L 10/20/17 05:57 Nucleated RBCs/100 WBC 0.4 /100 WBC (0) H 10/16/17 03:02 Sodium 135 mEq/L (136-145) L 10/20/17 05:57 Glucose 140 mg/dL (70-105) H 10/20/17 05:57 POC Glucose 143 mg/dL (70-99) H 10/19/17 15:44 Calcium 8.2 mg/dL (8.6-10.3) L 10/20/17 05:57 Total Bilirubin 1.6 mg/dL (0.3-1.0) H 10/20/17 05:57 Serum Total Protein 5.9 g/dL (6.4-8.9) L 10/20/17 05:57 Albumin 3.2 g/dL (3.5-5.7) L 10/20/17 05:57 HDL Cholesterol 33 mg/dL (40-59) L 10/15/17 03:45 Urine Clarity Cloudy (Clear) A 10/14/17 11:15 Urine Ketones Trace mg/dL (Negative) H 10/14/17 11:15 Urine Bilirubin Small (Negative) H 10/14/17 11:15 Ur Leukocyte Esterase Moderate (Negative) H 10/14/17 11:15 Urine Microscopic RBC 5-15 per hpf (0-3) H 10/14/17 11:15 Urine Microscopic WBC 15-30 per hpf (0-3) H 10/14/17 11:15 Ur Squamous Epith Cells Many per lpf (None-Few) H 10/14/17 11:15 Ur Culture Indicated? NO. (NO) A 10/14/17 11:15 - VTE Documentation of Mechanical Device: Intermittent pneumatic compression device Consult Discharge Plan - Plan Referrals: Silvio Disla MD [Primary Care Provider] - Shawn Clark Jr, MD [Partnered Physician] - 11/02/17 11:30 am
[2017-10-20] MEDS: predniSONE 20 MG TABLET PO SCH (10:49)
[2017-10-20] MEDS: Ipratropium/Albuterol Neb 3 ML IH SCH ×3 (11:43→22:54)
--- NOTE | 2017-10-20 14:36 | Internal Med Progress Note ---
Date of Encounter: 10/20/17 - Assessment and plan (1) Dyspnea Current Visit: Yes Status: Acute Qualifiers: Dyspnea type: dyspnea on exertion Qualified Code(s): R06.09 - Other forms of dyspnea (2) Weakness of both lower extremities Current Visit: Yes Status: Chronic (3) Diabetes Current Visit: Yes Status: Chronic Qualifiers: Diabetes mellitus type: type 2 Diabetes mellitus keno terminal operator insulin use: unspecified keno terminal operator insulin use status Diabetes mellitus complication status : with unspecified complications Qualified Code(s): E11.8 - Type 2 diabetes mellitus with unspecified complications (4) HTN (hypertension) Current Visit: Yes Status: Chronic Qualifiers: Hypertension type: essential hypertension Qualified Code(s): I10 - Essential (primary) hypertension (5) HLD (hyperlipidemia) Current Visit: Yes Status: Chronic Qualifiers: Hyperlipidemia type: pure hypercholesterolemia Qualified Code(s): E78.00 - Pure hypercholesterolemia, unspecified; E78.0 - Pure hypercholesterolemia (6) Thyroid disease Current Visit: Yes Status: Chronic (7) GERD (gastroesophageal reflux disease) Current Visit: Yes Status: Chronic Qualifiers: Esophagitis presence: esophagitis presence not specified Qualified Code(s) : K21.9 - Gastro-esophageal reflux disease without esophagitis (8) DVT prophylaxis Current Visit: Yes Status: Acute (9) Depression Current Visit: Yes Status: Chronic Qualifiers: Depression Type: unspecified Qualified Code(s): F32.9 - Major depressive disorder, single episode, unspecified (10) Spinal stenosis of lumbar region Current Visit: Yes Status: Chronic Qualifiers: Neurogenic claudication status: unspecified Qualified Code(s): M48.061 - Spinal stenosis, lumbar region without neurogenic claudication - Time Spent With Patient Total time spent is greater than 50% in coordination of care (as documented) at patient's floor/unit and/or counseling patient: - Constitutional Vitals: Temp Pulse Resp BP Pulse Ox 97.8 F 111 16 118/73 94 10/20/17 11:31 10/20/17 11:31 10/20/17 11:31 10/20/17 11:31 10/20/17 11:31 General appearance: Present: cooperative, A&O X 3, pleasant, no acute distress, obese, answers questions appropriately Internal Medicine: Result - Labs CBC & Chem 7: 10/20/17 05:57 10/20/17 05:57 Labs: Short CBC 10/20/17 Range/Units 05:57 WBC 7.2 D (4.3-11.1) K/mcL Hgb 14.1 (12.9-16.9) g/dL Hct 41.9 (37.5-50.1) % Plt Count 104 L (140-400) K/mcL Neutrophils # 5.8 (1.6-8.9) K/mcL BMP 10/20/17 05:57 Sodium 135 L Potassium 4.4 Chloride 101 Carbon Dioxide 28 BUN 21 Creatinine 1.05 Glucose 140 H Calcium 8.2 L Liver Function 10/20/17 Range/Units 05:57 Total Bilirubin 1.6 H (0.3-1.0) mg/dL AST 24 (13-39) Units/L ALT 9 (7-52) Units/L Alkaline Phosphatase 76 (34-104) Units/L Albumin 3.2 L (3.5-5.7) g/dL - VTE Documentation of Mechanical Device: Intermittent pneumatic compression device Consult Discharge Plan - Plan Referrals: Silvio Disla MD [Primary Care Provider] - Shawn Clark Jr, MD [Partnered Physician] - 11/02/17 11:30 am
--- NOTE | 2017-10-20 14:43 | Internal Med Progress Note ---
Date of Encounter: 10/20/17 Time of Encounter: 14:40 - Assessment and plan (1) Spinal stenosis of lumbar region Current Visit: Yes Status: Chronic Assessment and plan: s/p L3-L4 lumbar decompression with laminectomy on 10/15/[address] Clark. Patient is stable, awaiting for placement. Qualifiers: Neurogenic claudication status: unspecified Qualified Code(s): M48.061 - Spinal stenosis, lumbar region without neurogenic claudication (2) COPD exacerbation Current Visit: Yes Status: Acute Assessment and plan: suspected. Symptomatic with shortness of breath and wheezing. No increase in sputum production. Afebrile. No elevated WBC. Hold on ATB at this time. Steroid burst, bronchodilators. (3) Weakness of both lower extremities Current Visit: Yes Status: Chronic Assessment and plan: Secondary to lumbar stenosis. Evaluated by PT/OT who is recommending SNF. Awaiting placement. (4) Diabetes Current Visit: Yes Status: Chronic Assessment and plan: Per history. Blood sugars controlled. SSI. Monitor blood sugars and titrate PRN Qualifiers: Diabetes mellitus type: type 2 Diabetes mellitus group home insulin use: unspecified lobsterman insulin use status Diabetes mellitus complication status : with unspecified complications Qualified Code(s): E11.8 - Type 2 diabetes mellitus with unspecified complications (5) HTN (hypertension) Current Visit: Yes Status: Chronic Assessment and plan: per hx. BP controlled. Continue home BP medication. Monitor BP and titrate PRN Qualifiers: Hypertension type: essential hypertension Qualified Code(s): I10 - Essential (primary) hypertension (6) HLD (hyperlipidemia) Current Visit: Yes Status: Chronic Assessment and plan: per hx. Cont home statin Qualifiers: Hyperlipidemia type: pure hypercholesterolemia Qualified Code(s): E78.00 - Pure hypercholesterolemia, unspecified; E78.0 - Pure hypercholesterolemia (7) Thyroid disease Current Visit: Yes Status: Chronic Assessment and plan: per hx. Cont home synthroid (8) GERD (gastroesophageal reflux disease) Current Visit: Yes Status: Chronic Assessment and plan: per hx. Cont home PPI Qualifiers: Esophagitis presence: esophagitis presence not specified Qualified Code(s) : K21.9 - Gastro-esophageal reflux disease without esophagitis (9) Depression Current Visit: Yes Status: Chronic Assessment and plan: per hx. Cont home SSRI Qualifiers: Depression Type: unspecified Qualified Code(s): F32.9 - Major depressive disorder, single episode, unspecified (10) DVT prophylaxis Current Visit: Yes Status: Acute Assessment and plan: Was receiving heparin subcutaneous we will hold for now due to pending surgery and SCDs for now - Time Spent With Patient Total time spent is greater than 50% in coordination of care (as documented) at patient's floor/unit and/or counseling patient: - Subjective Interval history: Seen and examined at bedside. Patient is new to me, information obtained from chart review and patient report. Complains of generalized lower extremity weakness and has some mild back pain. Also has some shortness of breath and wheezing. No chest pain. - Constitutional Vitals: Temp Pulse Resp BP Pulse Ox 97.8 F 111 16 118/73 94 10/20/17 11:31 10/20/17 11:31 10/20/17 11:31 10/20/17 11:31 10/20/17 11:31 General appearance: Present: cooperative, A&O X 3, pleasant, no acute distress, obese, answers questions appropriately - Head Head exam: Present: atraumatic, normocephalic - Eye Eye exam: Present: PERRL, conjuntiva pink, sclera anicteric Pupils: Present: PERRL - Neck Neck exam general surgery: Present: supple, trachea midline. Absent: lymphadenopathy - Respiratory Respiratory exam: Present: CTAB, wheezes. Absent: accessory muscle use, rales, rhonchi - Cardiovascular Cardiovascular exam: Present: RRR, +S1, +S2. Absent: diastolic murmur, gallop, rubs, systolic murmur - GI/Abdominal GI/Abdominal exam: Present: normal bowel sounds, soft, no peritoneal signs. Absent: distended, tenderness - Extremities Exam Extremities exam: Present: warm, radial pulses palpable and symmetrical. Absent : calf tenderness, cyanotic, pedal edema - Neurological Exam Neurological exam: Present: CN II-XII intact, oriented X3, no focal deficits. Absent: pronater drift, facial droop, speech deficit - Skin Skin exam: Present: dry, intact Internal Medicine: Result - Labs CBC & Chem 7: 10/20/17 05:57 10/20/17 05:57 Labs: Short CBC 10/20/17 Range/Units 05:57 WBC 7.2 D (4.3-11.1) K/mcL Hgb 14.1 (12.9-16.9) g/dL Hct 41.9 (37.5-50.1) % Plt Count 104 L (140-400) K/mcL Neutrophils # 5.8 (1.6-8.9) K/mcL BMP 10/20/17 05:57 Sodium 135 L Potassium 4.4 Chloride 101 Carbon Dioxide 28 BUN 21 Creatinine 1.05 Glucose 140 H Calcium 8.2 L Liver Function 10/20/17 Range/Units 05:57 Total Bilirubin 1.6 H (0.3-1.0) mg/dL AST 24 (13-39) Units/L ALT 9 (7-52) Units/L Alkaline Phosphatase 76 (34-104) Units/L Albumin 3.2 L (3.5-5.7) g/dL - VTE Documentation of Mechanical Device: Intermittent pneumatic compression device Consult Discharge Plan - Plan Referrals: Silvio Disla MD [Primary Care Provider] - Shawn Clark Jr, MD [Partnered Physician] - 11/02/17 11:30 am
[2017-10-20] MEDS: Melatonin 3 MG TABLET PO PRN (20:13)
[2017-10-20] MEDS: Insulin DETEMIR 100 UNIT/ML X5UNITS SQ SCH (20:13)
[2017-10-21] MEDS: Ipratropium/Albuterol Neb 3 ML IH SCH (04:24)
[2017-10-21 07:17] VITALS: BP 158/77
[2017-10-21] MEDS: Insulin LISPRO 300 UNITS/3 ML VIAL SQ SCH (07:28)
[2017-10-21] MEDS: predniSONE 20 MG TABLET PO SCH (07:58)
[2017-10-21] MEDS: Famotidine 20 MG TABLET PO SCH (07:58)
--- NOTE | 2017-10-21 08:43 | Discharge Summary ---
Date of Encounter: 10/21/17 Time of Encounter: 08:36 - Discharge Diagnosis (1) Spinal stenosis of lumbar region Priority: Primary Status: Chronic Assessment and Plan: s/p L3-L4 lumbar decompression with laminectomy on 10/15/[address] Clark. Discharge to SNF. Follow-up with Dr. Clark outpatient Qualifiers: Neurogenic claudication status: unspecified Qualified Code(s): M48.061 - Spinal stenosis, lumbar region without neurogenic claudication (2) COPD exacerbation Priority: Primary Status: Acute Assessment and Plan: suspected. Symptomatic with shortness of breath and wheezing. No increase in sputum production. Afebrile. No elevated WBC. ATB not indicated at this time. Steroid burst, bronchodilators. (3) Weakness of both lower extremities Priority: Primary Status: Chronic Assessment and Plan: Secondary to lumbar stenosis. Evaluated by PT/OT who is recommending SNF. (4) Diabetes Priority: Secondary Status: Chronic Assessment and Plan: Per history. Blood sugars controlled. Cont home long acting insulin Qualifiers: Diabetes mellitus type: type 2 Diabetes mellitus shelter insulin use: unspecified assistant terminal manager insulin use status Diabetes mellitus complication status : with unspecified complications Qualified Code(s): E11.8 - Type 2 diabetes mellitus with unspecified complications (5) HTN (hypertension) Priority: Secondary Status: Chronic Assessment and Plan: per hx. BP controlled. Continue home BP medication. Qualifiers: Hypertension type: essential hypertension Qualified Code(s): I10 - Essential (primary) hypertension (6) HLD (hyperlipidemia) Priority: Secondary Status: Chronic Assessment and Plan: per hx. Cont home statin Qualifiers: Hyperlipidemia type: pure hypercholesterolemia Qualified Code(s): E78.00 - Pure hypercholesterolemia, unspecified; E78.0 - Pure hypercholesterolemia (7) Thyroid disease Priority: Secondary Status: Chronic Assessment and Plan: per hx. Cont home synthroid (8) GERD (gastroesophageal reflux disease) Priority: Secondary Status: Chronic Assessment and Plan: per hx. Cont home PPI Qualifiers: Esophagitis presence: esophagitis presence not specified Qualified Code(s) : K21.9 - Gastro-esophageal reflux disease without esophagitis (9) Depression Priority: Secondary Status: Chronic Assessment and Plan: per hx. Cont home SSRI Qualifiers: Depression Type: unspecified Qualified Code(s): F32.9 - Major depressive disorder, single episode, unspecified Hospital course: Please see assessment and plan for hospital course Discharge discussed with: patient (Seen and cemented at bedside. Says he had uneventful night. Still having some lower back pain that radiates to bilateral lower legs but overall improved) - Time Spent with Patient Total time spent providing and/or coordinating discharge services: - Discharge Medications Prescriptions: OxyCODONE Immed Rel [Roxicodone 5 MG] 10 mg PO Q6HR PRN 2 Days #16 tablet PRN Reason: Severe Pain Home Medications: Insulin Glargine,Hum.rec.anlog [Lantus Solostar] 13 unit SQ HS 10/14/17 [History ] Levothyroxine Sodium [Levo-T] 25 mcg PO QAM 10/14/17 [History] Levothyroxine Sodium [Levo-T] 200 mcg PO QAM 10/14/17 [History] Losartan Potassium [Cozaar] 50 mg PO DAILY 10/14/17 [History] Sertraline [Zoloft] 100 mg PO DAILY 10/14/17 [History] Simvastatin [Zocor] 40 mg PO HS 10/14/17 [History] raNITIdine HCl [Zantac] 150 mg PO BID 10/14/17 [History] OxyCODONE Immed Rel [Roxicodone 5 MG] 10 mg PO Q6HR PRN 2 Days #16 tablet [Rx] predniSONE [PredniSONE] 40 mg PO DAILY #6 tablet 10/21/17 [Rx] Allergies/Adverse Reactions: 3 Allergy/AdvReac Type Severity Reaction Status Date / Time acetaminophen [From Vicodin] AdvReac See Verified 10/14/17 10:24 Comments hydrocodone [From Vicodin] AdvReac See Verified 10/14/17 10:24 Comments Date of admission: 10/15/17 16:36 Primary care physician: Silvio Disla MD Consults: 10/18/17 17:50 Consult to Nurse Navigator [CONS] Routine Comment: spine navigator Consult to Occupational Therapy [CONS] Routine Comment: Evaluate, develop and implement POC Reason for Consult: Postoperative rehabilitation Does patient have active BEDREST order?: No Is patient medically & hemodynamically stable?: Yes Patient assessed for mobility or mobilized this visit?: No Consult to Physical Therapy [CONS] Routine Comment: Evaluate, develop and implement POC Reason for Consult: Postoperative rehabilitation Does patient have active BEDREST order?: No Is patient medically & hemodynamically stable?: Yes Patient assessed for mobility or mobilized this visit?: No Discharging clinician: Vy Boyd Anticipated date of discharge: 10/21/17 - Constitutional Vitals: Temp Pulse Resp BP Pulse Ox 98.2 F 93 16 158/77 96 10/21/17 07:12 10/21/17 07:12 10/21/17 07:12 10/21/17 07:12 10/21/17 07:12 General appearance: Present: cooperative, A&O X 3, pleasant, no acute distress, obese, answers questions appropriately - Head Head exam: Present: atraumatic, normocephalic - Eye Eye exam: Present: PERRL, conjuntiva pink, sclera anicteric Pupils: Present: PERRL - Neck Neck exam general surgery: Present: supple, trachea midline. Absent: lymphadenopathy - Respiratory Respiratory exam: Present: CTAB. Absent: accessory muscle use, rales, rhonchi, wheezes - Cardiovascular Cardiovascular exam: Present: RRR, +S1, +S2. Absent: diastolic murmur, gallop, rubs, systolic murmur - GI/Abdominal GI/Abdominal exam: Present: normal bowel sounds, soft, no peritoneal signs. Absent: distended, tenderness - Extremities Exam Extremities exam: Present: warm, radial pulses palpable and symmetrical. Absent : calf tenderness, cyanotic, pedal edema - Neurological Exam Neurological exam: Present: CN II-XII intact, oriented X3, no focal deficits. Absent: pronater drift, facial droop, speech deficit - Skin Skin exam: Present: dry, intact - Patient Status Disposition: Transfer SNF Condition: Good Functional capacity at discharge: uses cane/walker Overall status at discharge: patient is progressing back to baseline - Discharge Instructions Follow Up With: Silvio Disla MD [Primary Care Provider] - Shawn Clark Jr, MD [Partnered Physician] - 11/02/17 11:30 am - Diet and Activity Diet: diabetic diet - VTE Documentation of Mechanical Device: Intermittent pneumatic compression device
--- NOTE | 2017-10-21 09:12 | Physician Discharge Referral ---
ExtendedCare Referral Info Transfer To: SNF Provider in Charge: Vy Ely CNP Provider in Charge after Transfer: PCP Institutional Level of Care: Skilled - Diagnosis (1) Spinal stenosis of lumbar region Status: Chronic (2) COPD exacerbation Status: Acute (3) Weakness of both lower extremities Status: Chronic (4) Diabetes Status: Chronic (5) HTN (hypertension) Status: Chronic (6) HLD (hyperlipidemia) Status: Chronic (7) Thyroid disease Status: Chronic (8) GERD (gastroesophageal reflux disease) Status: Chronic (9) Depression Status: Chronic - Transfer Medications Prescriptions: OxyCODONE Immed Rel [Roxicodone 5 MG] 10 mg PO Q6HR PRN 2 Days #16 tablet PRN Reason: Severe Pain Home Medications: Insulin Glargine,Hum.rec.anlog [Lantus Solostar] 13 unit SQ HS 10/14/17 [History ] Levothyroxine Sodium [Levo-T] 25 mcg PO QAM 10/14/17 [History] Levothyroxine Sodium [Levo-T] 200 mcg PO QAM 10/14/17 [History] Losartan Potassium [Cozaar] 50 mg PO DAILY 10/14/17 [History] Sertraline [Zoloft] 100 mg PO DAILY 10/14/17 [History] Simvastatin [Zocor] 40 mg PO HS 10/14/17 [History] raNITIdine HCl [Zantac] 150 mg PO BID 10/14/17 [History] OxyCODONE Immed Rel [Roxicodone 5 MG] 10 mg PO Q6HR PRN 2 Days #16 tablet [Rx] predniSONE [PredniSONE] 40 mg PO DAILY #6 tablet 10/21/17 [Rx] Allergies/Adverse Reactions: 3 Allergy/AdvReac Type Severity Reaction Status Date / Time acetaminophen [From Vicodin] AdvReac See Verified 10/14/17 10:24 Comments hydrocodone [From Vicodin] AdvReac See Verified 10/14/17 10:24 Comments - Respiratory Orders None Smoking Cessation: Smoking cessation has been advised. For more information, call the [place] Tobacco Quit Line at 7-021-EIOI-NOW. - Advance Directives Code Status: Full Code - Mobility Orders Ambulate - Rehabiliation Orders Rehab Potential: Good Rehab Orders: Evaluation for Physical Therapy, Evaluation for Occupational Therapy - Diet Orders No Concentrated Sweets CERTIFICATION: I certify that the transfer of the above named patient to an Extended Care Facility is necessary for the continuing treatment of the diagnosis listed. The above information is true and accurate reflection of patient's current condition. Confidential - Redisclosure prohibited without a patient's written consent.
== END 2017-10-21 10:43 | DRG 516 ==
LOC: EMEROO 10:17 → 3BNU 10:17
PROVIDERS: ADMIT Hospitalist; ATTEND Hospitalist

== ENCOUNTER 2019-01-31 13:45 | Inpatient (IN) ==
[2019-01-31 14:46] LABS: INR 1.3; Mean Corpuscular Volume 98.6 fL (83.0-100.0); Monocytes % 7.4 %; Prothrombin Time 14.5 Seconds (9.4-12.1)
[2019-01-31 14:47] LABS: Basophils % 0.2 %; Eosinophils % 0.8 %; Hemoglobin 13.9 g/dL (12.9-16.9); Immature Granulocytes % 0.4 % (0-4); Immature Platelets 2.4 % (1.1-6.1); Lymphocytes % 9.8 %; Mean Corpuscular HGB Conc 33.1 g/dL (31.6-35.5); Mean Corpuscular Hemoglobin 32.6 pg (28.0-33.3); Mean Platelet Volume 10.3 fL (9.4-12.4); Red Blood Count 4.26 M/mcL (4.19-5.50); Red Cell Distribution Width 14.5 % (11.5-14.5); Segmented Neutrophils % 81.4 %; White Blood Count 5.3 K/mcL (4.3-11.1)
[2019-01-31 14:48] LABS: Lymphocytes # 0.5 K/mcL (0.6-4.6); Monocytes # 0.4 K/mcL (0.0-1.3); Neutrophils # 4.3 K/mcL (1.6-8.9)
[2019-01-31 14:54] LABS: Platelet Count 96 K/mcL (140-400)
[2019-01-31 14:57] LABS: Alanine Aminotransferase 15 Units/L (7-52); Albumin 3.4 g/dL (3.5-5.7); Albumin/Globulin Ratio 1.4 (1.1-2.2); Alkaline Phosphatase 79 Units/L (34-104); Aspartate Amino Transferase 60 Units/L (13-39); BUN/Creatinine Ratio 18 (6-26); Bilirubin,Total 1.8 mg/dL (0.3-1.0); Blood Urea Nitrogen 21 mg/dL (8-23); Calcium 8.6 mg/dL (8.6-10.3); Carbon Dioxide 26 mEq/L (23-29); Chloride 107 mEq/L (98-107); Globulin 2.4 g/dL (2.4-3.5); Glucose 85 mg/dL (70-105); Magnesium 1.8 mg/dL (1.6-2.6); Osmolality,Calculated 298 (280-300); Sodium 143 mEq/L (136-145); Total Protein 5.8 g/dL (6.4-8.9); Troponin I < 0.03 ng/mL (< 0.04); eGFR For African Americans > 60 (> 60); eGFR For Non-African Americans 59 (> 60)
[2019-01-31 15:07] LABS: Thyroid Stimulating Hormone 0.075 mcIU/mL (0.340-5.600)
[2019-01-31] MEDS ORDERED: Naloxone 0.4 MG/ML INJ IVP PRN (18:00)
[2019-01-31] MEDS ORDERED: Ondansetron 4 MG/2 ML VIAL IVP PRN (18:00)
[2019-01-31] MEDS ORDERED: Dextrose Gel 15 GM/37.5 ML TUBE PO PRN ×2 (18:05)
[2019-01-31] MEDS ORDERED: *HR* Dextrose 50 % in Water (Syg) 50 ML SYRINGE IVP PRN (18:05)
[2019-01-31] MEDS ORDERED: D5% in Water 1,000 ML IVC PRN (18:05)
[2019-01-31 20:25] LABS: Bilirubin,Urine Moderate (Negative); Blood,Urine Negative (Negative); Clarity,Urine Clear (Clear); Color,Urine Dark Yellow (Yellow); Glucose,Urine (UA) Normal (Normal); Ketones,Urine 40 mg/dL (Negative); Leukocyte Esterase,Urine Small (Negative); Nitrite,Urine Negative (Negative); PH,Urine 5.5 pH Units (5.0-8.0); Protein,Urine Negative (Neg-Trace); Specific Gravity,Urine 1.026 (1.010-1.025); Urobilinogen,Urine Normal (Normal)
[2019-01-31 20:27] LABS: Bacteria,Urine None Seen per hpf (None-Few); Hyaline Casts,Urine None Seen per lpf (None-Few); RBC,Urine 0-3 per hpf (0-3); Squamous Epithelial Cell,Urine Many per lpf (None-Few)
[2019-01-31] MEDS: Insulin DETEMIR 100 UNIT/ML X5UNITS SQ SCH (20:52)
[2019-02-01 02:42] LABS: Albumin 3.1 g/dL (3.5-5.7); Albumin/Globulin Ratio 1.3 (1.1-2.2); Bilirubin,Direct 0.4 mg/dL (0.0-0.2); Bilirubin,Indirect 1.3 mg/dL (0.0-1.2); Bilirubin,Total 1.7 mg/dL (0.3-1.0); Globulin 2.3 g/dL (2.4-3.5); Total Protein 5.4 g/dL (6.4-8.9)
[2019-02-01 02:46] LABS: BUN/Creatinine Ratio 19 (6-26); Blood Urea Nitrogen 21 mg/dL (8-23); Calcium 8.3 mg/dL (8.6-10.3); Carbon Dioxide 24 mEq/L (23-29); Chloride 107 mEq/L (98-107); Creatine Kinase 269 Units/L (30-223); Glucose 71 mg/dL (70-105); Osmolality,Calculated 293 (280-300); Potassium 3.8 mEq/L (3.5-5.1); Sodium 141 mEq/L (136-145); eGFR For African Americans > 60 (> 60); eGFR For Non-African Americans > 60 (> 60)
[2019-02-01 02:58] LABS: Triiodothyronine (T3) Free 2.76 pg/mL (2.50-3.90)
[2019-02-01] MEDS: Insulin LISPRO 300 UNITS/3 ML VIAL SQ SCH ×3 (07:47→16:30)
[2019-02-01] MEDS: Insulin DETEMIR 100 UNIT/ML X5UNITS SQ SCH (21:04)
[2019-02-02] MEDS: Insulin LISPRO 300 UNITS/3 ML VIAL SQ SCH ×3 (07:45→16:03)
[2019-02-02] MEDS ORDERED: 0.9 % Sodium Chloride 500 ML IVC ONE (08:36)
[2019-02-02 09:44] LABS: Alanine Aminotransferase 12 Units/L (7-52); Albumin 2.9 g/dL (3.5-5.7); Albumin/Globulin Ratio 1.3 (1.1-2.2); Alkaline Phosphatase 71 Units/L (34-104); Aspartate Amino Transferase 34 Units/L (13-39); BUN/Creatinine Ratio 19 (6-26); Bilirubin,Total 1.6 mg/dL (0.3-1.0); Blood Urea Nitrogen 21 mg/dL (8-23); Calcium 8.2 mg/dL (8.6-10.3); Carbon Dioxide 31 mEq/L (23-29); Chloride 106 mEq/L (98-107); Globulin 2.3 g/dL (2.4-3.5); Glucose 128 mg/dL (70-105); Osmolality,Calculated 303 (280-300); Potassium 3.9 mEq/L (3.5-5.1); Sodium 144 mEq/L (136-145); Total Protein 5.2 g/dL (6.4-8.9); eGFR For African Americans > 60 (> 60); eGFR For Non-African Americans > 60 (> 60)
[2019-02-02] MEDS: Insulin DETEMIR 100 UNIT/ML X5UNITS SQ SCH (20:35)
[2019-02-03 02:07] LABS: Alanine Aminotransferase 11 Units/L (7-52); Albumin/Globulin Ratio 1.3 (1.1-2.2); Alkaline Phosphatase 74 Units/L (34-104); Aspartate Amino Transferase 30 Units/L (13-39); BUN/Creatinine Ratio 20 (6-26); Bilirubin,Total 1.3 mg/dL (0.3-1.0); Blood Urea Nitrogen 24 mg/dL (8-23); Calcium 8.2 mg/dL (8.6-10.3); Carbon Dioxide 27 mEq/L (23-29); Chloride 106 mEq/L (98-107); Globulin 2.3 g/dL (2.4-3.5); Glucose 112 mg/dL (70-105); Osmolality,Calculated 299 (280-300); Potassium 4.2 mEq/L (3.5-5.1); Sodium 142 mEq/L (136-145); Total Protein 5.3 g/dL (6.4-8.9); eGFR For African Americans > 60 (> 60); eGFR For Non-African Americans 59 (> 60)
[2019-02-03] MEDS: Insulin LISPRO 300 UNITS/3 ML VIAL SQ SCH ×3 (08:29→16:02)
[2019-02-03] MEDS: Insulin DETEMIR 100 UNIT/ML X5UNITS SQ SCH (21:43)
[2019-02-04 01:50] LABS: Alanine Aminotransferase 12 Units/L (7-52); Albumin 3.1 g/dL (3.5-5.7); Albumin/Globulin Ratio 1.2 (1.1-2.2); Alkaline Phosphatase 82 Units/L (34-104); Aspartate Amino Transferase 27 Units/L (13-39); BUN/Creatinine Ratio 19 (6-26); Bilirubin,Total 1.4 mg/dL (0.3-1.0); Blood Urea Nitrogen 23 mg/dL (8-23); Calcium 8.3 mg/dL (8.6-10.3); Carbon Dioxide 29 mEq/L (23-29); Chloride 104 mEq/L (98-107); Globulin 2.5 g/dL (2.4-3.5); Glucose 127 mg/dL (70-105); Osmolality,Calculated 295 (280-300); Potassium 4.3 mEq/L (3.5-5.1); Sodium 140 mEq/L (136-145); Total Protein 5.6 g/dL (6.4-8.9); eGFR For African Americans > 60 (> 60); eGFR For Non-African Americans 58 (> 60)
[2019-02-04] MEDS: Insulin LISPRO 300 UNITS/3 ML VIAL SQ SCH ×2 (08:10→12:58)
[2019-02-04 11:35] VITALS: BP 148/80
[2019-02-04] MEDS ORDERED: FLU Vac QV 19-20 (6Month+)/PF 0.5 ML SYRINGE IM ONE (14:39)
== END 2019-02-04 15:03 | DRG 948 ==
LOC: 3BNU 13:45 → EMEROOARM 13:45 → SUATTDRO 17:18 → 3BNU 18:07
PROVIDERS: ADMIT Internal Medicine; ATTEND Family Medicine